=== PATIENT | male | born 1945 | race Caucasian/White ===

== ENCOUNTER 2016-12-26 09:48 | Inpatient (IN) | payer MEDICARE ==
[2016-12-26] VITALS (9 sets, daily range): BP systolic 90–172; BP diastolic 53–85; PULSE 98–139; RESP 12–24; TEMP 97.4–97.8; O2SAT 98–100
[~2016-12-26] VITALS: Ht 182.9 cm; Wt 80.1 kg
[~2016-12-26 09:48] MED LIST: ASPI325T PO; CARV3.125 PO; DIGO.125 PO; FURO20 PO; INSP25TA PO; POTA-267 PO; RAMI10CA35 PO; RANI150 PO; RIVA20 PO
[2016-12-26] MEDS ORDERED: TEMA15CA PO (11:48)
[2016-12-26] MEDS ORDERED: K-TA10TA PO (11:48)
[2016-12-26] MEDS ORDERED: RAMI2.5C PO (11:48)
[2016-12-26] MEDS ORDERED: MECL12.574 PO (11:48)
[2016-12-26] MEDS ORDERED: FURO1TAB60 PO (11:48)
[2016-12-26] MEDS ORDERED: MECLIZINE HCL 25 MG TAB PO ONE (12:15)
--- NOTE | 2016-12-26 12:17 | PD ---
HPI Chief Complaint: Syncope/Near-Syncope Time Seen by Provider: 11:41 Travel History International Travel<30 days: No Contact w/Intl Traveler<30days: No Traveled to known affect area: No History of Present Illness HPI 71-year-old male that presents to the ED for evaluation of multiple syncopal episodes and dizziness for the past 5 months. The patient she's had this ongoing for the past 5 months. Per patient is progressively getting worse and is not improving. He went to [facility] about a month ago and was released and he symptoms continue. Per patient he wasn't happy with the care he got about hospital. Patient came here hoping to get answers. 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 Patient has a significant history of CHF as well. Patient takes multiple medications for his heart and takes blood thinners as well. His falling multiple times because of the dizziness. The patient usually comes with position especially with sitting and standing. Lying down makes it better. Per patient for the past couple of days it's been progressively getting worse. 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 He denies any chest pain or shortness of breath. No urinary or bowel movement issues. No fevers chills or sweats. PFSH Past Medical History Hx Anticoagulant Therapy: Yes Autoimmune Disease: No Blood Disorders: No Heart Rhythm Problems: Yes (AFIB) Cancer: No Cardiac Catheterization: Yes Cardiovascular Problems: Yes (CHF) High Cholesterol: Yes Chemotherapy: No Chest Pain: Yes Congestive Heart Failure: Yes Cerebrovascular Accident: Yes Coronary Artery Disease: Yes Diabetes: No Endocrine: No Gastrointestinal Disorders: No Genitourinary: No Hepatitis: No Hiatal Hernia: No Hypertension: No (HYPOTENSION) Immune Disorder: No Implanted Vascular Access Dvce: Yes Musculoskeletal: No Neurologic: Yes (PT HAS FALLEN 3-4 TIMES IN PAST WEEK THAT DEMONSTRATES POSSIBLE STROKE ACTI) Psychiatric: No Reproductive: No Respiratory: Yes (ASTHMA) Integumentary: No Myocardial Infarction: Yes (2005 AICD PLACED) Radiation Therapy: No Thyroid Disease: No Past Surgical History Abdominal Surgery: Yes (APPY) AICD: Yes (2005) Appendectomy: Yes Joint Replacement: No Oral Surgery: Yes (T&A) Pacemaker: Yes Other Surgery: No Social History Alcohol Use: Yes (1-2 BEERS A DAY) Tobacco Use: No Substance Use: No Allergies-Medications (Allergen,Severity, Reaction): Coded Allergies: No Known Allergies (Verified , 12/26/16) Reported Meds & Prescriptions Reported Meds & Active Scripts Active Reported Temazepam 15 Mg Cap 15 Mg PO HS PRN Ramipril 2.5 Mg Cap 2.5 Mg PO DAILY K-Tab (Potassium Chloride) 10 Meq Tab 10 Meq PO DAILY Meclizine (Meclizine HCl) 12.5 Mg Tab 12.5 Mg PO TID PRN Lasix (Furosemide) 40 Mg Tab 40 Mg PO BID Inspra (Eplerenone) 25 Mg Tab 25 Mg PO DAILY Coreg 3.125 mg (Carvedilol) 3.125 Mg Tab 3.125 Mg PO BID Aspirin 325 mg (Aspirin) 325 Mg Tab 325 Mg PO DAILY Xarelto 20 Mg Tab (Rivaroxaban) 20 Mg Tab 20 Mg PO DAILY Lanoxin (Digoxin) 0.125 Mg Tab 0.125 Mg PO DAILY Review of Systems Except as stated in HPI: all other systems reviewed are Neg Physical Exam Narrative GENERAL: SKIN: Warm and dry. HEAD: Atraumatic. Normocephalic. EYES: Pupils equal and round 4 mm reactive to light and accommodation with the exception of the left one which patient has cataract surgery history. No scleral icterus. No injection or drainage. ENT: No nasal bleeding or discharge. Mucous membranes pink and moist. Tongue is midline. No uvula radiation. NECK: Trachea midline. No JVD. CARDIOVASCULAR: Tachycardic rate and rhythm. No murmurs, S3, S4. RESPIRATORY: No accessory muscle use. Clear to auscultation. Breath sounds equal bilaterally. GASTROINTESTINAL: Abdomen soft, non-tender, nondistended. Hepatic and splenic margins not palpable. MUSCULOSKELETAL: Extremities without clubbing, cyanosis, or edema. No obvious deformities. Full range of motion of the upper and lower extremities bilaterally with weakness noted on the left upper extremity as well as the left lower extremity compared to the right but this is chronic. Pupils pulses bilaterally. No lumbar, thoracic, cervical spine tenderness to palpation. NEUROLOGICAL: Awake and alert. No obvious cranial nerve deficits. Motor grossly within normal limits. Five out of 5 muscle strength in the arms and legs. Normal speech. PSYCHIATRIC: Appropriate mood and affect; insight and judgment normal. Data Data Last Documented VS Vital Signs Date Time Temp Pulse Resp B/P (MAP) Pulse Ox O2 Delivery O2 Flow Rate FiO2 12/26/16 13:44 116 16 159/70 (99) 100 Nasal Cannula 2.00 12/26/16 09:52 97.8 Orders Orders Electrocardiogram (12/26/16 11:39) Complete Blood Count With Diff (12/26/16 11:39) Comprehensive Metabolic Panel (12/26/16 11:39) Ckmb (Isoenzyme) Profile (12/26/16 11:39) Troponin I (12/26/16 11:39) B-Type Natriuretic Peptide (12/26/16 11:39) Prothrombin Time / Inr (Pt) (12/26/16 11:39) Act Partial Throm Time (Ptt) (12/26/16 11:39) Urinalysis - C+S If Indicated (12/26/16 11:39) Magnesium (Mg) (12/26/16 11:39) Thyroid Stimulating Hormone (12/26/16 11:39) Chest, Single Ap (12/26/16 11:39) Iv Access Insert/Monitor (12/26/16 11:39) Ecg Monitoring (12/26/16 11:39) Oximetry (12/26/16 11:39) Orthostatic Vital Signs (12/26/16 11:39) Digoxin (12/26/16 11:45) Ct Brain W/O Iv Contrast(Rout) (12/26/16 ) Meclizine (Antivert) (12/26/16 12:15) Vital Signs (Adult) Q15MX4,Q4H (12/26/16 13:03) Accounts Specialist / Telemetry TIFFANIE.Q8H (12/26/16 13:03) Cardiac Rhythm TIFFANIE.Q8H (12/26/16 13:03) Notify Dr: Other (12/26/16 13:03) Diltiazem Inj (Cardizem Inj) (12/26/16 13:15) Admit Order (Ed Use Only) (12/26/16 13:38) Carvedilol (Coreg) (12/26/16 13:45) Digoxin (Lanoxin) (12/27/16 09:00) Furosemide (Lasix) (12/26/16 21:00) Potassium Chloride (Kcl) (12/27/16 09:00) Ramipril (Altace) (12/27/16 09:00) Rivaroxaban (Xarelto) (12/27/16 09:00) Labs Laboratory Tests Test 12/26/16 11:56 White Blood Count 12.0 TH/MM3 Red Blood Count 4.83 MIL/MM3 Hemoglobin 14.9 GM/DL Hematocrit 46.0 % Mean Corpuscular Volume 95.1 FL Mean Corpuscular Hemoglobin 30.8 PG Mean Corpuscular Hemoglobin Concent 32.4 % Red Cell Distribution Width 16.0 % Platelet Count 231 TH/MM3 Mean Platelet Volume 8.9 FL Neutrophils (%) (Auto) 76.2 % Lymphocytes (%) (Auto) 10.3 % Monocytes (%) (Auto) 12.1 % Eosinophils (%) (Auto) 0.9 % Basophils (%) (Auto) 0.5 % Neutrophils # (Auto) 9.1 TH/MM3 Lymphocytes # (Auto) 1.2 TH/MM3 Monocytes # (Auto) 1.4 TH/MM3 Eosinophils # (Auto) 0.1 TH/MM3 Basophils # (Auto) 0.1 TH/MM3 CBC Comment DIFF FINAL Differential Comment Prothrombin Time 15.4 SEC Prothromb Time International Ratio 1.4 RATIO Activated Partial Thromboplast Time 29.9 SEC Blood Urea Nitrogen 18 MG/DL Creatinine 1.26 MG/DL Random Glucose 103 MG/DL Total Protein 5.6 GM/DL Albumin 2.6 GM/DL Calcium Level 8.1 MG/DL Magnesium Level 2.0 MG/DL Alkaline Phosphatase 53 U/L Aspartate Amino Transf (AST/SGOT) 18 U/L Alanine Aminotransferase (ALT/SGPT) 18 U/L Total Bilirubin 1.0 MG/DL Sodium Level 138 MEQ/L Potassium Level 3.3 MEQ/L Chloride Level 100 MEQ/L Carbon Dioxide Level 30.3 MEQ/L Anion Gap 8 MEQ/L Estimat Glomerular Filtration Rate 56 ML/MIN Total Creatine Kinase 86 U/L Troponin I 0.03 NG/ML B-Type Natriuretic Peptide 615 PG/ML Thyroid Stimulating Hormone 3rd Gen 1.380 uIU/ML Digoxin Level 1.0 NG/ML MDM Medical Decision Making Medical Screen Exam Complete: Yes Emergency Medical Condition: Yes Medical Record Reviewed: Yes Interpretation(s) EKG show tachycardia with pace rhythm CBC & BMP Diagram 12/26/16 11:56 Total Protein 5.6 L, Albumin 2.6 L, Calcium Level 8.1 L, Magnesium Level 2.0, Alkaline Phosphatase 53, Aspartate Amino Transf (AST/SGOT) 18, Alanine Aminotransferase (ALT/SGPT) 18, Total Bilirubin 1.0 Last Impressions Chest X-Ray 12/26/16 1139 Signed Impressions: Service Date/Time: Monday, December 26, 2016 11:41 - CONCLUSION: 1. There is only trace residual right pleural fluid present. Overall significantly decreased from the prior study. 2. Stable enlargement of the cardiac silhouette. Jewel Hannon MD Head CT 12/26/16 0000 Signed Impressions: Service Date/Time: Monday, December 26, 2016 12:18 - CONCLUSION: 1. Previous stroke in the right posterior cerebral artery territory with a focal area of encephalomalacia in the right parafalcine high parietal convexity. 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 3. Nothing acute. Ric Rainey MD troponin and CKMB negative BNP in the 600s digoxin WNL coags WNL Differential Diagnosis Dizziness versus orthostatic hypotension versus CHF versus cardiomyopathy versus syncope versus presyncope versus arrhythmia Narrative Course 71-year-old male that presents to the ED for evaluation of dizziness. Patient was properly examined and was found to have signs and symptoms of syncope and dizziness. Unclear etiology at this time. Patient for she does have significant heart history as well as CVA history. He does take blood thinners and digoxin as well as has a pacemaker and has a history a dermopathy with severe CHF. At this time patient does not appear to be in CHF but he is very symptomatic with just sitting and standing. His heart rate elevated. Initial orthostatics were negative the patient was very symptomatic with just standing. At this time labs and imaging were ordered. Patient agrees to proceed. Labs and imaging showed elevated BNP as well as tachycardia. We had the pacemaker checked here and it did show what appears to be multiple episodes of VT and A. fib with RVR. Case was discussed in my attending Dr Mayen who recommends speaking with cardiology. We spoke with Dr. Chou who is on-call for Dr. Arana and agrees with admission to medicine and started on Cardizem drip. Patient was started Cardizem drip. Patient was told this and agrees with admission. Procedures EKG Prior to Arrival: No Diagnosis Primary Impression: Dizziness Additional Impressions: Tachyarrhythmia VT (ventricular tachycardia) Cardiomyopathy Qualified Codes: I42.9 - Cardiomyopathy, unspecified Admitting Information Admitting Physician Requests: Reid Trujillo Dec 26, 2016 12:17
--- NOTE | 2016-12-26 12:25 | RADRPT ---
EXAM DATE/TIME: 12/26/2016 11:41 [facility] COMPARISON: CHEST SINGLE AP, December 01, 2015, 6:10. INDICATIONS : SYNCOPE MEDICAL HISTORY : Congestive heart failure. A-fib, asthma SURGICAL HISTORY : Pacemaker. ENCOUNTER: Initial ACUITY: 3 months PAIN SCORE: 0/10 LOCATION: chest FINDINGS: AP view of the chest demonstrate stable enlargement of the cardiac silhouette with biventricular card iac pacing device/AICD present. Lungs are mildly underinflated. There is minimal blunting of the righ t costophrenic angle. No pneumothorax or airspace consolidation is identified. Bones and soft tissues demonstrate no acute finding. CONCLUSION: 1. There is only trace residual right pleural fluid present. Overall significantly decreased from the prior study. 2. Stable enlargement of the cardiac silhouette. Jewel Hannon MD on December 26, 2016 at 12:21 Board Certified Radiologist. This report was verified electronically.
[2016-12-26 12:54] LABS: APTT (PATIENT) 29.9 SEC (24.3-30.1); INTERNATIONAL NORMALIZED RATIO 1.4 RATIO; PROTHROMBIN TIME - PATIENT 15.4 SEC (9.8-11.6)
[2016-12-26 12:55] LABS: AUTOMATED NEUTROPHIL # 9.1 TH/MM3 (1.8-7.7); BASOPHIL # 0.1 TH/MM3 (0-0.2); BASOPHIL % 0.5 % (0.0-2.0); EOSINOPHIL # 0.1 TH/MM3 (0-0.4); EOSINOPHIL % 0.9 % (0.0-4.0); HEMO FLAGS DIFF FINAL; LYMPH % 10.3 % (9.0-44.0); LYMPHOCYTE # 1.2 TH/MM3 (1.0-4.8); MEAN CELL VOLUME 95.1 FL (80.0-100.0); MEAN CORPUSCULAR HEMOGLOBIN 30.8 PG (27.0-34.0); MEAN CORPUSCULAR HGB CONC 32.4 % (32.0-36.0); MONO % 12.1 % (0.0-8.0); NEUT % 76.2 % (16.0-70.0); PLATELET COUNT 231 TH/MM3 (150-450); RED BLOOD COUNT 4.83 MIL/MM3 (4.50-5.90)
[2016-12-26 13:01] LABS: ANION GAP 8 MEQ/L (5-15); AST (GOT) 18 U/L (15-37); BICARBONATE 30.3 MEQ/L (21.0-32.0); BLOOD UREA NITROGEN 18 MG/DL (7-18); CHLORIDE 100 MEQ/L (98-107); GLOMERULAR FILTRATION RATE 56 ML/MIN (>89); POTASSIUM 3.3 MEQ/L (3.5-5.1); SODIUM (NA) 138 MEQ/L (136-145)
[2016-12-26 13:02] LABS: ALT (GPT) 18 U/L (12-78)
--- NOTE | 2016-12-26 13:06 | RADRPT ---
EXAM DATE/TIME: 12/26/2016 12:18 [facility] COMPARISON: No previous studies available for comparison. INDICATIONS : Dizziness for five months. RADIATION DOSE: 56.35 CTDIvol (mGy) MEDICAL HISTORY : Cardiovascular disease. Stroke Hypotention. SURGICAL HISTORY : Appendectomy. ENCOUNTER: Initial ACUITY: 1 day PAIN SCALE: 0/10 LOCATION: cranial TECHNIQUE: Multiple contiguous axial images were obtained of the head. Using automated exposure control and adj ustment of the mA and/or kV according to patient size, radiation dose was kept as low as reasonably a chievable to obtain optimal diagnostic quality images. DICOM format image data is available electro nically for review and comparison. FINDINGS: CEREBRUM: The ventricles are normal for age. No evidence of midline shift, mass lesion, hemorrhage or acute in farction. Old infarct in the right posterior cerebral artery distribution with focal area of encepha lomalacia in the high right, parafalcine parietal convexity. Punctate old lacunar type infarct in the right thalamus No extra-axial fluid collections are seen. POSTERIOR FOSSA: The cerebellum and brainstem are intact. The 4th ventricle is midline. The cerebellopontine angle i s unremarkable. EXTRACRANIAL: The visualized portion of the orbits is intact. Pneumatization of the anterior and posterior clinoid of the sella turcica. Phthisis bulbi of the left globe SKULL: The calvaria is intact. No evidence of skull fracture. CONCLUSION: 1. Previous stroke in the right posterior cerebral artery territory with a focal area of encephalomal acia in the right parafalcine high parietal convexity. 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 3. Nothing acute. Ric Rainey MD on December 26, 2016 at 12:53 Board Certified Radiologist. This report was verified electronically.
[2016-12-26 13:11] LABS: ALKALINE PHOSPHATASE 53 U/L (45-117)
[2016-12-26 13:26] LABS: CREATINE KINASE 86 U/L (39-308)
[2016-12-26] MEDS: CARVEDILOL 3.125 MG TAB PO SCH ×2 (13:45→21:00)
[2016-12-26] MEDS: DILTIAZEM INJ 125 MG in SODIUM CHLORIDE 0.9% INJ 100 ML IV PRN (14:22)
--- NOTE | 2016-12-26 14:40 | MB ---
cc: JUAN MASON MD DATE OF CONSULTATION: 12/26/2016. REASON FOR CONSULTATION: Dizziness. HISTORY OF PRESENT ILLNESS: The patient is a pleasant 71-year-old gentleman who follows with my partner, Dr. Arana, who has a history of a nonischemic cardiomyopathy as well atrial fibrillation. He says over the last several weeks he has had multiple near syncopal episodes, though it is unclear whether he has truly lost to syncope. He presented to hospital and by defibrillator check was found to have periods of atrial fibrillation with rapid ventricular response. He is currently feeling somewhat better but is heart rates still are in the 120s to 130s. He denies any chest pain or shortness of breath. PAST MEDICAL HISTORY: 1. Nonischemic cardiomyopathy. 2. Congestive heart failure. 3. Atrial fibrillation. 4. ICD. HOME MEDICATIONS: 1. Xarelto 20 milligrams at bedtime. 2. Digoxin 0.125 milligrams daily. 3. Coreg 3.125 milligrams twice a day. 4. Ramipril 2.5 milligrams daily. 5. . 6. Aspirin 325 mg daily. 7. Potassium. 8. Lasix 40 milligrams twice a day. 9. Meclizine. ALLERGIES: NO KNOWN DRUG ALLERGIES. PHYSICAL EXAMINATION: VITAL SIGNS: Afebrile, pulse 120, respiratory rate 20, blood pressure 119/53 satting 99% on room air. GENERAL: A pleasant gentleman in no distress. NECK: No jugular venous distention. LUNGS: Clear to auscultation bilaterally. CARDIOVASCULAR: Irregularly irregular rhythm with a mildly rapid rate. No murmurs appreciated. ABDOMEN: Benign. EXTREMITIES: No edema. LABORATORY DATA: White count 12.0, hematocrit 46.0, platelets 231,000. Sodium 138, potassium 3.3, chloride 100, bicarbonate 30.3, BUN 18, creatinine 1.26. BNP is 615. CARDIOLOGY STUDIES: EKG shows a paced rhythm with a rate of 115 beats per minute. Telemetry and his pacemaker interrogation have shown periods of atrial fibrillation with rapid ventricular response as well as several paced terminated episodes of a possible ventricular tachycardia. IMPRESSION: 1. Dizziness. The patient has dizziness atrial fibrillation with rapid ventricular response. He is anticoagulated with Xarelto. He has been started on a Cardizem drip and his oral regimen will need to be adjusted to get him better rate-controlled. Further recommendations will be based on his clinical course and Dr. Arana will be available tomorrow to assume care. Thank you again for the opportunity to participate in this patient's care. MD SHAHANA Kimble/DALIA /1:42 PM /2:31 PM
--- NOTE | 2016-12-26 14:48 | HHI.HP ---
HPI Service [facility] Primary Care Physician Nikhil Perkins, [facility] [place] Docs Admission Diagnosis Near syncope and dizziness, tachyarrhythmia Chief Complaint: Dizziness, near-snycope Travel History International Travel<30 Days: No Contact w/Intl Traveler <30 Da: No Traveled to Known Affected Are: No History of Present Illness Mr. Yousif is a pleasant 71 y/o WM with nonischemic cardiomyopathy/CHF with EF 10 -15% with BiVAICD, atrial fibrillation, HTN, and vertigo. Pt presented to the ED with complaints of dizziness and near syncopal episodes which have been occurring for at least the last 3 months. Patient feels that this has been progressively getting worsening. Pt reports that the dizziness occurs mostly when going from sitting to standing and sitting back down or lying down typically resolves or improves the dizziness. It varies in how long the dizziness lasts. He does describe the dizziness like the room is spinning. He has also had episode of near syncope where he will feel that his vision gets "cloudy" and then his legs give out and he will collapse to the floor. He denies having lost consciousness. The last episode of near syncope was around 2 weeks ago. He reports that when this episode occurred his checked his BP and his systolic BP was in the 90's. He reports that his BP fluctuates quite a bit. For the last few days he has felt that the dizziness episodes have been more frequent and lasting longer and this prompted him to come to the ED for further evaluation. In the ED his AICd was interrogated and revealed periods of atrial fibrillation with rapid ventricular response as well as several paced terminated episodes of a possible ventricular tachycardia. Cardiology was contacted from the ED, Dr. Chou, who is covering for Dr. Arana, and the pt was recommended for admission and to be placed on Cardizem gtt. Pt was just started on the Cardizem gtt and his HR is in the 120's. Pt denies any chest pain , SOB, palpitations, LE edema. He states that his weight has been fairly stable. Denies any abd pain, N/V, diarrhea, or constipation. Review of Systems Constitutional: COMPLAINS OF: Dizziness, DENIES: Diaphoretic episodes, Fever, Chills, Night Sweats Eyes: DENIES: Vision loss Ears, nose, mouth, throat: COMPLAINS OF: Vertigo, DENIES: Hoarseness, Running Nose, Epistaxis Respiratory: DENIES: Cough, Wheezing, Shortness of breath Cardiovascular: DENIES: Chest pain, Palpitations, Lower Extremity Edema Gastrointestinal: DENIES: Abdominal pain, Diarrhea, Nausea, Vomiting Genitourinary: DENIES: Urgency, Hematuria Musculoskeletal: DENIES: Neck pain Integumentary: DENIES: Rash Neurologic: DENIES: Headache Psychiatric: DENIES: Confusion Past Family Social History Past Medical History Atrial fibrillation s/p ablation of AVN Nonischemic CM, EF 10-15% with BiVAICD Systolic CHF Hx of VT HTN Vertigo Hx of CVA with left sided weakness/gait disturbance, pt uses a walker Hyperlipidemia Insomnia 2D echo (04/2016): - Severe mitral regurg - LV enlargement with global hypokinesis and markedly reduced EF 10-15% Past Surgical History EPS with AVN ablation and biventricular pacer defibrillator reprogramming on with Dr. Arana. AICD placed in 2005 Appendectomy Tonsillectomy and adenoidectomy Reported Medications -Temazepam 15 Mg PO HS PRN -Ramipril 2.5 Mg PO DAILY -K-Tab 10 Meq PO DAILY -Inspra 25 Mg PO DAILY -Coreg 3.125 mg PO BID -Aspirin 325 mg PO DAILY -Xarelto 20 Mg PO DAILY -Lanoxin 0.125 Mg PO DAILY --Ranitidine 150Mg PO TID --Meclizine 25 Mg PO TID PRN --Lasix 40 Mg PO DAILY Allergies: Coded Allergies: No Known Allergies (Verified , 12/26/16) Family History Noncontributory Social History Denies any tobacco use, now or in the past Hx of alcohol abuse, pt used to drink regularly, several beers per day, none for the last 2 years Denies any illicit drug use Pt is on supplemental O2 chronically He ambulates with use of a walker Pt no longer drives He lives locally with his . Physical Exam Vital Signs Vital Signs Date Time Temp Pulse Resp B/P (MAP) Pulse Ox O2 Delivery O2 Flow Rate FiO2 12/26/16 14:22 110 12/26/16 13:44 116 16 159/70 (99) 100 Nasal Cannula 2.00 12/26/16 12:05 110 20 119/53 (75) 123 20 100/74 (83) 116 22 159/70 (99) 12/26/16 11:49 118 12 121/55 (77) 98 Room Air 12/26/16 11:40 117 96 Room Air 12/26/16 09:52 97.8 105 24 93/65 (74) 100 Room Air Physical Exam GENERAL: This is a well-nourished, well-developed patient, in no apparent distress. SKIN: Lesion on right forearm that is somewhat ulcerated HEENT: Atraumatic. Normocephalic. No temporal or scalp tenderness. No scleral icterus. Airway patent. NECK: Trachea midline, supple, nontender. CARDIO: Irregular, tachy, HR in the 120's on telemetry. RESP: CTA bilaterally. No wheezes, rales, or rhonchi. ABD: +Bs, soft, non-tender, nondistended. EXT: Extremities without clubbing, cyanosis, or edema. NEURO: Awake and alert. Motor and sensory grossly within normal limits. Normal speech. Laboratory Laboratory Tests Test 12/26/16 11:56 White Blood Count 12.0 Red Blood Count 4.83 Hemoglobin 14.9 Hematocrit 46.0 Mean Corpuscular Volume 95.1 Mean Corpuscular Hemoglobin 30.8 Mean Corpuscular Hemoglobin Concent 32.4 Red Cell Distribution Width 16.0 Platelet Count 231 Mean Platelet Volume 8.9 Neutrophils (%) (Auto) 76.2 Lymphocytes (%) (Auto) 10.3 Monocytes (%) (Auto) 12.1 Eosinophils (%) (Auto) 0.9 Basophils (%) (Auto) 0.5 Neutrophils # (Auto) 9.1 Lymphocytes # (Auto) 1.2 Monocytes # (Auto) 1.4 Eosinophils # (Auto) 0.1 Basophils # (Auto) 0.1 CBC Comment DIFF FINAL Differential Comment Prothrombin Time 15.4 Prothromb Time International Ratio 1.4 Activated Partial Thromboplast Time 29.9 Blood Urea Nitrogen 18 Creatinine 1.26 Random Glucose 103 Total Protein 5.6 Albumin 2.6 Calcium Level 8.1 Magnesium Level 2.0 Alkaline Phosphatase 53 Aspartate Amino Transf (AST/SGOT) 18 Alanine Aminotransferase (ALT/SGPT) 18 Total Bilirubin 1.0 Sodium Level 138 Potassium Level 3.3 Chloride Level 100 Carbon Dioxide Level 30.3 Anion Gap 8 Estimat Glomerular Filtration Rate 56 Total Creatine Kinase 86 Troponin I 0.03 B-Type Natriuretic Peptide 615 Thyroid Stimulating Hormone 3rd Gen 1.380 Digoxin Level 1.0 Result Diagram: 12/26/16 1156 12/26/16 1156 Imaging Last Impressions Chest X-Ray 12/26/16 1139 Signed Impressions: Service Date/Time: Monday, December 26, 2016 11:41 - CONCLUSION: 1. There is only trace residual right pleural fluid present. Overall significantly decreased from the prior study. 2. Stable enlargement of the cardiac silhouette. Jewel Hannon MD Head CT 12/26/16 0000 Signed Impressions: Service Date/Time: Monday, December 26, 2016 12:18 - CONCLUSION: 1. Previous stroke in the right posterior cerebral artery territory with a focal area of encephalomalacia in the right parafalcine high parietal convexity. 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 3. Nothing acute. Ric Rainey MD Septic Shock Reassessment Heart: Irregular Lungs: Clear Skin: Warm Caprini VTE Risk Assessment Caprini VTE Risk Assessment: Mod/High Risk (score >= 2) Caprini Risk Assessment Model Point Value = 1 Point Value = 2 Point Value = 3 Point Value = 5 Age 41-60 Minor surgery BMI > 25 kg/m2 Swollen legs Varicose veins or History of unexplained or recurrent spontaneous Oral contraceptives or hormone replacement Sepsis (< 1 month) Serious lung disease, including pneumonia (< 1 month) Abnormal pulmonary function Acute myocardial infarction Congestive heart failure (< 1 month) History of inflammatory bowel disease Medical patient at bed rest Age 61-74 Arthroscopic surgery Major open surgery (> 45 min) Laparoscopic surgery (> 45 min) Malignancy Confined to bed (> 72 hours) Immobilizing plaster cast Central venous access Age >= 75 History of VTE Family history of VTE Factor V Leiden Prothrombin [id number] Lupus anticoagulant Anticardiolipin antibodies Elevated serum homocysteine Heparin-induced thrombocytopenia Other congenital or acquired thrombophilia Stroke (< 1 month) Elective arthroplasty Hip, pelvis, or leg fracture Acute spinal cord injury (< 1 month) Prophylaxis Regimen Total Risk Factor Score Risk Level Prophylaxis Regimen 0-1 Low Early ambulation 2 Moderate Order ONE of the following: *Sequential Compression Device (SCD) *Heparin 5000 units SQ BID 3-4 Higher Order ONE of the following medications: *Heparin 5000 units SQ TID *Enoxaparin/Lovenox 40 mg SQ daily (WT < 150 kg, CrCl > 30 mL/min) *Enoxaparin/Lovenox 30 mg SQ daily (WT < 150 kg, CrCl > 10-29 mL/min) *Enoxaparin/Lovenox 30 mg SQ BID (WT < 150 kg, CrCl > 30 mL/min) AND/OR *Sequential Compression Device (SCD) 5 or more Highest Order ONE of the following medications: *Heparin 5000 units SQ TID (Preferred with Epidurals) *Enoxaparin/Lovenox 40 mg SQ daily (WT < 150 kg, CrCl > 30 mL/min) *Enoxaparin/Lovenox 30 mg SQ daily (WT < 150 kg, CrCl > 10-29 mL/min) *Enoxaparin/Lovenox 30 mg SQ BID (WT < 150 kg, CrCl > 30 mL/min) AND *Sequential Compression Device (SCD) Assessment and Plan Problem List: (1) Atrial fibrillation with RVR ICD Codes: I48.91 - Unspecified atrial fibrillation Status: Chronic Plan: - Pt is a 71 y/o male with nonischemic cardiomyopathy/Systolic CHF with EF 10-15 % with BiVAICD, atrial fibrillation, HTN, and vertigo. - Pt presented to the ED with complaints of dizziness and near syncopal episodes which have been occurring for at least the last 3 months. - For the last few days he has felt that the dizziness episodes have been more frequent and lasting longer and this prompted him to come to the ED for further evaluation. - In the ED his AICD was interrogated and revealed periods of atrial fibrillation with rapid ventricular response as well as several paced terminated episodes of a possible ventricular tachycardia. - Cardiology was contacted from the ED, Dr. Chou, who is covering for Dr. Arana, and the pt was recommended for admission and to be placed on Cardizem gtt. - Pt was just started on the Cardizem gtt and his HR is in the 120's. - Pt has been resumed on Coreg 3.125mg BID and Digoxin 0.125mg daily - Check Dig level - Pt has been resumed on his Xarelto 20mg daily - Monitor on telemetry - Pt has had some newr syncopal episodes as well, etiology unclear, could be related to dysrhythmia, pt has also had issues with hypotension when he has had these near syncopal episodes. - Dr. Arana to evaluate pt in AM - Supportive care - JOSEE unger (2) Dizziness ICD Codes: R42 - Dizziness and giddiness Status: Acute Plan: - Patient has been having issues with dizziness and vertigo for quite some time intermittently. - In the last 3 months he feels that this has been progressively getting worsening. - Pt reports that the dizziness occurs mostly when going from sitting to standing and sitting back down or lying down typically resolves or improves the dizziness. It varies in how long the dizziness lasts. He does describe the dizziness like the room is spinning. - Pt has been taking Meclizine 25mg po TID PRN - We will schedule the Meclizine 25mg po TID - PT evaluation in the morning (3) VT (ventricular tachycardia) ICD Codes: I47.2 - Ventricular tachycardia Status: Acute Plan: - See above. (4) HTN (hypertension) ICD Codes: I10 - Essential (primary) hypertension Status: Chronic Plan: - Home meds resumed - Monitor (5) Cardiomyopathy ICD Codes: I42.9 - Cardiomyopathy Status: Chronic Plan: - Pt with nonischemic CM with EF 10-15% s/p BiVAICD - BB/CHARITO/Lasix continued - Monitor BP closely while on Cardizem gtt. Assessment and Plan Patient examined. Assessment and plan formulated with Myrna Casanova PA-C. I agree with the above. Physician Certification 2 Midnight Certification Type: Admission for Inpatient Services Order for Inpatient Services The services are ordered in accordance with Medicare regulations or non- Medicare payer requirements, as applicable. In the case of services not specified as inpatient-only, they are appropriately provided as inpatient services in accordance with the 2-midnight benchmark. Estimated LOS (days): 3 3 days is the estimated time the patient will need to remain in the hospital, assuming treatment plan goals are met and no additional complications. Post-Hospital Plan: Not yet determined Problem Qualifiers (1) HTN (hypertension): Qualified Codes: I10 - Essential (primary) hypertension (2) Cardiomyopathy: Qualified Codes: I42.9 - Cardiomyopathy, unspecified Myrna Casanova Dec 26, 2016 14:48 Titus Morris MD Dec 26, 2016 20:39
[2016-12-26] MEDS ORDERED: ONDANSETRON HCL 4 MG/2 ML VIAL IV PRN (16:00)
[2016-12-26] MEDS ORDERED: ACETAMINOPHEN 325 MG TAB PO PRN (16:00)
[2016-12-26] MEDS: MECLIZINE HCL 25 MG TAB PO SCH ×2 (16:00→21:08)
[2016-12-26] MEDS: FUROSEMIDE 40 MG TAB PO SCH (21:00)
[2016-12-27] VITALS (11 sets, daily range): BP systolic 92–131; BP diastolic 52–81; PULSE 82–189; RESP 16–20; TEMP 97.4–98.1; O2SAT 96–99
[2016-12-27] MEDS: MECLIZINE HCL 25 MG TAB PO SCH ×4 (06:00→22:21)
[2016-12-27 07:25] LABS: AUTOMATED NEUTROPHIL # 5.3 TH/MM3 (1.8-7.7); BASOPHIL % 0.6 % (0.0-2.0); EOSINOPHIL # 0.2 TH/MM3 (0-0.4); EOSINOPHIL % 2.1 % (0.0-4.0); HEMATOCRIT 40.2 % (39.0-51.0); HEMO FLAGS DIFF FINAL; LYMPH % 10.5 % (9.0-44.0); LYMPHOCYTE # 0.8 TH/MM3 (1.0-4.8); MEAN CELL VOLUME 95.2 FL (80.0-100.0); MEAN CORPUSCULAR HEMOGLOBIN 31.3 PG (27.0-34.0); MEAN CORPUSCULAR HGB CONC 32.8 % (32.0-36.0); MONO % 15.3 % (0.0-8.0); NEUT % 71.5 % (16.0-70.0); PLATELET COUNT 174 TH/MM3 (150-450); RED BLOOD COUNT 4.22 MIL/MM3 (4.50-5.90); RED CELL DISTRIBUTION WIDTH 16.2 % (11.6-17.2); WHITE BLOOD COUNT 7.4 TH/MM3 (4.0-11.0)
[2016-12-27 07:40] LABS: BICARBONATE 29.7 MEQ/L (21.0-32.0); MAGNESIUM 2.1 MG/DL (1.5-2.5); POTASSIUM 3.5 MEQ/L (3.5-5.1)
[2016-12-27] MEDS: RAMIPRIL 2.5 MG CAP PO SCH (08:25)
[2016-12-27] MEDS: FUROSEMIDE 40 MG TAB PO SCH ×2 (08:25→21:00)
[2016-12-27] MEDS: CARVEDILOL 3.125 MG TAB PO SCH ×3 (08:25→21:00)
[2016-12-27] MEDS: RIVAROXABAN 20 MG TAB PO SCH (08:38)
[2016-12-27] MEDS: DIGOXIN 0.125 MG TAB PO SCH (08:38)
[2016-12-27] MEDS: POTASSIUM CHLORIDE 10 MEQ CONTROLLED RELEASE TAB PO SCH (08:38)
[2016-12-27] MEDS: DILTIAZEM INJ 125 MG in SODIUM CHLORIDE 0.9% INJ 100 ML IV PRN (11:08)
[2016-12-27] MEDS ORDERED: IBUPROFEN 600 MG TAB PO ONE (14:00)
--- NOTE | 2016-12-27 14:59 | HHI.PR ---
Subjective Remarks Pt walked with PT this morning and reports that he felt lightheaded. He did have noted VT on the telemetry while he was walking. Pt denies any chest pain or SOB The Cardizem gtt has been held due to low BP, last BP reading with systolic of 90. Objective Vitals Vital Signs Date Time Temp Pulse Resp B/P (MAP) Pulse Ox O2 Delivery O2 Flow Rate FiO2 12/27/16 12:00 116 92/74 (80) 12/27/16 11:08 100 88/58 12/27/16 08:44 Nasal Cannula 2.00 12/27/16 08:00 97.4 114 20 99/72 (81) 99 12/27/16 04:58 2.00 12/27/16 04:29 97.8 102 16 94/65 (75) 12/27/16 04:25 98 12/27/16 04:20 102 94/65 12/27/16 00:20 Nasal Cannula 2.00 12/27/16 00:03 116 12/27/16 00:00 97.6 113 20 98 92/62 (72) 12/26/16 20:00 97.6 115 20 90/66 (74) 99 12/26/16 20:00 Nasal Cannula 2.00 12/26/16 20:00 116 12/26/16 18:04 139 12/26/16 16:16 97.4 104 20 94/71 (79) 99 12/26/16 15:09 107 20 112/73 (86) 98 Nasal Cannula 2.00 Result Diagram: 12/27/16 0612/27/16 0605 Other Results Laboratory Tests Test 12/26/16 11:56 12/27/16 06:05 White Blood Count 12.0 TH/MM3 7.4 TH/MM3 Red Blood Count 4.83 MIL/MM3 4.22 MIL/MM3 Hemoglobin 14.9 GM/DL 13.2 GM/DL Hematocrit 46.0 % 40.2 % Mean Corpuscular Volume 95.1 FL 95.2 FL Mean Corpuscular Hemoglobin 30.8 PG 31.3 PG Mean Corpuscular Hemoglobin Concent 32.4 % 32.8 % Red Cell Distribution Width 16.0 % 16.2 % Platelet Count 231 TH/MM3 174 TH/MM3 Mean Platelet Volume 8.9 FL 9.2 FL Neutrophils (%) (Auto) 76.2 % 71.5 % Lymphocytes (%) (Auto) 10.3 % 10.5 % Monocytes (%) (Auto) 12.1 % 15.3 % Eosinophils (%) (Auto) 0.9 % 2.1 % Basophils (%) (Auto) 0.5 % 0.6 % Neutrophils # (Auto) 9.1 TH/MM3 5.3 TH/MM3 Lymphocytes # (Auto) 1.2 TH/MM3 0.8 TH/MM3 Monocytes # (Auto) 1.4 TH/MM3 1.1 TH/MM3 Eosinophils # (Auto) 0.1 TH/MM3 0.2 TH/MM3 Basophils # (Auto) 0.1 TH/MM3 0.0 TH/MM3 CBC Comment DIFF FINAL DIFF FINAL Differential Comment Prothrombin Time 15.4 SEC Prothromb Time International Ratio 1.4 RATIO Activated Partial Thromboplast Time 29.9 SEC Blood Urea Nitrogen 18 MG/DL 19 MG/DL Creatinine 1.26 MG/DL 1.10 MG/DL Random Glucose 103 MG/DL 88 MG/DL Total Protein 5.6 GM/DL Albumin 2.6 GM/DL Calcium Level 8.1 MG/DL 8.0 MG/DL Magnesium Level 2.0 MG/DL 2.1 MG/DL Alkaline Phosphatase 53 U/L Aspartate Amino Transf (AST/SGOT) 18 U/L Alanine Aminotransferase (ALT/SGPT) 18 U/L Total Bilirubin 1.0 MG/DL Sodium Level 138 MEQ/L 139 MEQ/L Potassium Level 3.3 MEQ/L 3.5 MEQ/L Chloride Level 100 MEQ/L 101 MEQ/L Carbon Dioxide Level 30.3 MEQ/L 29.7 MEQ/L Anion Gap 8 MEQ/L 8 MEQ/L Estimat Glomerular Filtration Rate 56 ML/MIN 66 ML/MIN Total Creatine Kinase 86 U/L Troponin I 0.03 NG/ML B-Type Natriuretic Peptide 615 PG/ML Thyroid Stimulating Hormone 3rd Gen 1.380 uIU/ML Digoxin Level 1.0 NG/ML Imaging Last Impressions Chest X-Ray 12/26/16 1139 Signed Impressions: Service Date/Time: Monday, December 26, 2016 11:41 - CONCLUSION: 1. There is only trace residual right pleural fluid present. Overall significantly decreased from the prior study. 2. Stable enlargement of the cardiac silhouette. Jewel Hannon MD Head CT 12/26/16 0000 Signed Impressions: Service Date/Time: Monday, December 26, 2016 12:18 - CONCLUSION: 1. Previous stroke in the right posterior cerebral artery territory with a focal area of encephalomalacia in the right parafalcine high parietal convexity. 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 3. Nothing acute. Ric Rainey MD Objective Remarks General: NAD, AAOx3 Chest: CTA Cardiac: Irregular, tachy, 4/6 RUDY Abd: +BS, soft ND/NT Ext: No edema A/P Problem List: (1) Atrial fibrillation with RVR ICD Codes: I48.91 - Unspecified atrial fibrillation Status: Chronic Plan: - Pt is a 71 y/o male with nonischemic cardiomyopathy/Systolic CHF with EF 10-15 % with BiVAICD, atrial fibrillation, HTN, and vertigo. - Pt presented to the ED with complaints of dizziness and near syncopal episodes which have been occurring for at least the last 3 months. - For the last few days he has felt that the dizziness episodes have been more frequent and lasting longer and this prompted him to come to the ED for further evaluation. - In the ED his AICD was interrogated and revealed periods of atrial fibrillation with rapid ventricular response as well as several paced terminated episodes of a possible ventricular tachycardia. - Cardiology was contacted from the ED, Dr. Chou, who is covering for Dr. Arana, and the pt was recommended for admission and to be placed on Cardizem gtt. - Pt was started on the Cardizem gtt in the ED - Pt was resumed on Coreg 3.125mg BID and Digoxin 0.125mg daily. - Dig level 1.0 at admission. - Pt has been resumed on his Xarelto 20mg daily - Pt has had some near syncopal episodes as well, etiology unclear, could be related to dysrhythmia, pt has also had issues with hypotension when he has had these near syncopal episodes. - Dr. Arana to evaluate pt today - He has had issues with hypotension today, BB, CHARITO and Lasix on hold - Cardizem gtt is on hold. - Supportive care - JOSEE unger (2) Dizziness ICD Codes: R42 - Dizziness and giddiness Status: Acute Plan: - Patient has been having issues with dizziness and vertigo for quite some time intermittently. - In the last 3 months he feels that this has been progressively getting worsening. - Pt reports that the dizziness occurs mostly when going from sitting to standing and sitting back down or lying down typically resolves or improves the dizziness. It varies in how long the dizziness lasts. He does describe the dizziness like the room is spinning. - Pt has been taking Meclizine 25mg po TID PRN - Cont. Meclizine 25mg po TID (3) VT (ventricular tachycardia) ICD Codes: I47.2 - Ventricular tachycardia Status: Acute Plan: - See above. (4) HTN (hypertension) ICD Codes: I10 - Essential (primary) hypertension Status: Chronic Plan: - Home meds on hold due to low BP - Monitor (5) Cardiomyopathy ICD Codes: I42.9 - Cardiomyopathy Status: Chronic Plan: - Pt with nonischemic CM with EF 10-15% s/p BiVAICD - BB/CHARITO/Lasix on hold due to hypotension Assessment and Plan Patient examined. Assessment and plan formulated with Myrna Casanova PA-C. I agree with the above. Case d/w Dr. Arana (12/27/16) No further digoxin at this time. Dr. Arana will reevaluate pt/case clarissa today. Problem Qualifiers (1) HTN (hypertension): Qualified Codes: I10 - Essential (primary) hypertension (2) Cardiomyopathy: Qualified Codes: I42.9 - Cardiomyopathy, unspecified Myrna Casanova Dec 27, 2016 14:59 Noe López DO Dec 27, 2016 15:57
--- NOTE | 2016-12-27 15:34 | EKG ---
Date Performed: 12/26/2016 Time Performed: 11:51:38 PTAGE: 71 years EKG: ELECTRONIC VENTRICULAR PACEMAKER When compared to previous tracing rate is significantly in creased. ABNORMAL RHYTHM ECG PREVIOUS TRACING : 17.00.30 DOCTOR: Mario Alberto Moulton Interpretating Date/Time 12/27/2016 15:33:21
[2016-12-28] VITALS (7 sets, daily range): BP systolic 90–144; BP diastolic 56–71; PULSE 74–116; RESP 16–21; TEMP 97.1–98; O2SAT 93–100
[2016-12-28] MEDS: MECLIZINE HCL 25 MG TAB PO SCH ×3 (05:41→21:37)
[2016-12-28] MEDS: RIVAROXABAN 20 MG TAB PO SCH (08:48)
[2016-12-28] MEDS: POTASSIUM CHLORIDE 10 MEQ CONTROLLED RELEASE TAB PO SCH (08:48)
[2016-12-28] MEDS: DIGOXIN 0.125 MG TAB PO SCH (08:48)
[2016-12-28] MEDS: CARVEDILOL 3.125 MG TAB PO SCH ×2 (08:50→21:00)
[2016-12-28] MEDS: RAMIPRIL 2.5 MG CAP PO SCH (08:50)
[2016-12-28] MEDS: FUROSEMIDE 40 MG TAB PO SCH ×2 (08:51→21:00)
--- NOTE | 2016-12-28 15:35 | HHI.PR ---
Subjective Remarks Pt still with low BP today and elevated HR He was seen by Dr. Arana this afternoon and is recommended to have EPS with possible ablation tomorrow. Objective Vitals Vital Signs Date Time Temp Pulse Resp B/P (MAP) Pulse Ox O2 Delivery O2 Flow Rate FiO2 12/28/16 11:50 97.6 114 20 92/60 (71) 100 12/28/16 08:00 97.1 116 16 90/60 (70) 99 12/28/16 04:00 97.4 114 18 94/56 (69) 96 12/28/16 00:00 97.7 110 21 98/63 (75) 93 12/27/16 20:00 114 12/27/16 20:00 97.8 82 18 94/52 (66) 96 12/27/16 20:00 Nasal Cannula 2.00 12/27/16 16:38 96/68 (77) 12/27/16 16:00 98.1 106 20 131/81 (98) 99 Result Diagram: 12/27/16 0605 12/27/16 0605 Other Results Laboratory Tests Test 12/27/16 06:05 White Blood Count 7.4 TH/MM3 Red Blood Count 4.22 MIL/MM3 Hemoglobin 13.2 GM/DL Hematocrit 40.2 % Mean Corpuscular Volume 95.2 FL Mean Corpuscular Hemoglobin 31.3 PG Mean Corpuscular Hemoglobin Concent 32.8 % Red Cell Distribution Width 16.2 % Platelet Count 174 TH/MM3 Mean Platelet Volume 9.2 FL Neutrophils (%) (Auto) 71.5 % Lymphocytes (%) (Auto) 10.5 % Monocytes (%) (Auto) 15.3 % Eosinophils (%) (Auto) 2.1 % Basophils (%) (Auto) 0.6 % Neutrophils # (Auto) 5.3 TH/MM3 Lymphocytes # (Auto) 0.8 TH/MM3 Monocytes # (Auto) 1.1 TH/MM3 Eosinophils # (Auto) 0.2 TH/MM3 Basophils # (Auto) 0.0 TH/MM3 CBC Comment DIFF FINAL Differential Comment Blood Urea Nitrogen 19 MG/DL Creatinine 1.10 MG/DL Random Glucose 88 MG/DL Calcium Level 8.0 MG/DL Magnesium Level 2.1 MG/DL Sodium Level 139 MEQ/L Potassium Level 3.5 MEQ/L Chloride Level 101 MEQ/L Carbon Dioxide Level 29.7 MEQ/L Anion Gap 8 MEQ/L Estimat Glomerular Filtration Rate 66 ML/MIN Imaging Last Impressions Chest X-Ray 12/26/16 1139 Signed Impressions: Service Date/Time: Monday, December 26, 2016 11:41 - CONCLUSION: 1. There is only trace residual right pleural fluid present. Overall significantly decreased from the prior study. 2. Stable enlargement of the cardiac silhouette. Jewel Hannon MD Head CT 12/26/16 0000 Signed Impressions: Service Date/Time: Monday, December 26, 2016 12:18 - CONCLUSION: 1. Previous stroke in the right posterior cerebral artery territory with a focal area of encephalomalacia in the right parafalcine high parietal convexity. 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 3. Nothing acute. Ric Rainey MD Objective Remarks General: NAD, AAOx3 Chest: CTA Cardiac: Irregular, tachy, 4/6 RUDY Abd: +BS, soft ND/NT Ext: No edema A/P Problem List: (1) Atrial fibrillation with RVR ICD Codes: I48.91 - Unspecified atrial fibrillation Status: Chronic Plan: - Pt is a 71 y/o male with nonischemic cardiomyopathy/Systolic CHF with EF 10-15 % with BiVAICD, atrial fibrillation, HTN, and vertigo. - Pt presented to the ED with complaints of dizziness and near syncopal episodes which have been occurring for at least the last 3 months. - For the last few days he has felt that the dizziness episodes have been more frequent and lasting longer and this prompted him to come to the ED for further evaluation. - In the ED his AICD was interrogated and revealed periods of atrial fibrillation with rapid ventricular response as well as several paced terminated episodes of a possible ventricular tachycardia. - Cardiology was contacted from the ED, Dr. Chou, who is covering for Dr. Arana, and the pt was recommended for admission and to be placed on Cardizem gtt. - Pt was started on the Cardizem gtt in the ED - Pt was resumed on Coreg 3.125mg BID and Digoxin 0.125mg daily. - Dig level 1.0 at admission. - Cont. Xarelto 20mg daily - Pt has had some near syncopal episodes as well, etiology unclear, could be related to dysrhythmia, pt has also had issues with hypotension when he has had these near syncopal episodes. - Dr. Arana is recommending EPS with possible ablation tomorrow. - He has had issues with hypotension today; BB, CHARITO and Lasix on hold - Cardizem gtt is on hold. - Supportive care - JOSEE unger (2) Dizziness ICD Codes: R42 - Dizziness and giddiness Status: Acute Plan: - Patient has been having issues with dizziness and vertigo for quite some time intermittently. - In the last 3 months he feels that this has been progressively getting worsening. - Pt reports that the dizziness occurs mostly when going from sitting to standing and sitting back down or lying down typically resolves or improves the dizziness. It varies in how long the dizziness lasts. He does describe the dizziness like the room is spinning. - Pt has been taking Meclizine 25mg po TID PRN - Cont. Meclizine 25mg po TID (3) VT (ventricular tachycardia) ICD Codes: I47.2 - Ventricular tachycardia Status: Acute Plan: - See above. (4) HTN (hypertension) ICD Codes: I10 - Essential (primary) hypertension Status: Chronic Plan: - Home meds on hold due to low BP - Monitor (5) Cardiomyopathy ICD Codes: I42.9 - Cardiomyopathy Status: Chronic Plan: - Pt with nonischemic CM with EF 10-15% s/p BiVAICD - BB/CHARITO/Lasix on hold due to hypotension Assessment and Plan Patient examined. Assessment and plan formulated with Myrna Casanova PA-C. I agree with the above. Problem Qualifiers (1) HTN (hypertension): Qualified Codes: I10 - Essential (primary) hypertension (2) Cardiomyopathy: Qualified Codes: I42.9 - Cardiomyopathy, unspecified Myrna Casanova Dec 28, 2016 15:35 Noe López DO Dec 31, 2016 23:45
--- NOTE | 2016-12-28 18:12 | MB ---
cc: PRATIBHA LÓPEZ HANSCY M.D. DATE OF CONSULTATION 12/28/2016 Electrophysiology consultation REASON FOR CONSULTATION Atrial fibrillation unable to control with medication. HISTORY Mr. Yousif is a 71-year-old gentleman with congestive heart failure, cardiomyopathy. He has a previous biventricular pacer defibrillator implanted, nonischemic cardiomyopathy, atrial fibrillation admitted due to atrial fibrillation, shortness of breath. Heart rate cannot be controlled. I was consulted for further evaluation and management. The chart was reviewed. The patient was evaluated. ALLERGIES None. SOCIAL HISTORY Negative for smoking and drinking. FAMILY HISTORY Noncontributory to his current medical condition. MEDICATIONS He is on: 1. Xarelto. 2. Digoxin. 3. Coreg. 4. Ramipril. 5. Aspirin. 6. Potassium. 7. Lasix. 8. Magnesium. REVIEW OF SYSTEMS The patient refers no chest pain. No chest discomfort. Shortness of breath on palpitation but no fever. PHYSICAL EXAMINATION GENERAL: Alert and fully oriented. In bed. VITAL SIGNS: Blood pressure 92/60, pulse 114, respiratory rate 20. LUNGS: Ventilated. CARDIOVASCULAR: S1-S2. Tachycardic, irregular. ABDOMEN: Soft. No mass. No bruit. EXTREMITIES: No edema. Electrocardiogram atrial fibrillation with rapid ventricular response on V pacing. LABORATORY DATA Hemoglobin 13.2, white blood 7.4. Potassium 3.5, creatinine 1.10. Digoxin 1.0. ASSESSMENT AND RECOMMENDATIONS Mr. Yousif has atrial fibrillation. He has severe cardiomyopathy. The gentleman is not a good candidate for atrial fibrillation ablation. The best approach at this point is AV lefty medication and BiV pacing. The gentleman already has a device. The risks, the nature and the benefit of the procedure are clearly stated to him and his family. The risks include pneumothorax, cardiac perforation, stroke and even . They understood and agreed to proceed. The case discussed with Dr. López. The procedure will be performed most likely tomorrow morning. MD JESSE Ryan/CLAUDIA /5:22 PM /5:56 PM
[2016-12-29] VITALS: BP 104/65; PULSE 107; RESP 16; TEMP 98.3; O2SAT 100
[2016-12-29 04:00] VITALS: BP 109/61; PULSE 104; RESP 16; TEMP 97.7; O2SAT 100
[2016-12-29] MEDS: MECLIZINE HCL 25 MG TAB PO SCH ×3 (05:30→21:13)
[2016-12-29 08:00] VITALS: BP 108/73; PULSE 110; PULSE 122; RESP 18; TEMP 97.8; O2SAT 97
--- NOTE | 2016-12-29 08:46 | PD.CARD.PN ---
Subjective Subjective Remarks Feels okay, still in A. fib. Heart rate in the low 100s. Objective Medications Current Medications Medications (Trade) Dose Ordered Sig/Praveen Route Start Time Stop Time Status Last Admin Diltiazem HCl 125 mg/Sodium Chloride 125 ml @ 5 mls/hr TITRATE PRN IV 12/26/16 13:15 12/27/16 11:08 (Coreg) 3.125 mg BID PO 12/26/16 13:45 12/26/16 13:45 (Lanoxin) 0.125 mg DAILY PO 12/27/16 09:00 12/28/16 08:48 (Lasix) 40 mg BID PO 12/26/16 21:00 (KCl) 10 meq DAILY PO 12/27/16 09:00 12/28/16 08:48 (Altace) 2.5 mg DAILY PO 12/27/16 09:00 (Antivert) 25 mg Q8HR PO 12/26/16 16:00 12/29/16 05:30 (Tylenol) 650 mg Q4H PRN PO 12/26/16 16:00 (Zofran Inj) 4 mg Q6H PRN IV 12/26/16 16:00 Vital Signs / I&O Vital Signs Date Time Temp Pulse Resp B/P (MAP) Pulse Ox O2 Delivery O2 Flow Rate FiO2 12/29/16 04:00 97.7 104 16 109/61 (77) 100 12/29/16 00:00 98.3 107 16 104/65 (78) 100 12/28/16 20:00 97.2 99 16 99/56 (70) 98 12/28/16 20:00 Nasal Cannula 2.00 12/28/16 20:00 91 12/28/16 19:00 97.8 113 20 105/65 (78) 12/28/16 16:15 97.1 108 18 98/56 (70) 96 98/60 (73) 12/28/16 11:50 97.6 114 20 92/60 (71) 100 I/O 12/28/16 12/28/16 12/28/16 12/29/16 12/29/16 12/29/16 07:00 15:00 23:00 07:00 15:00 23:00 Intake Total 240 ml 480 ml Output Total 500 ml 500 ml Balance -260 ml 480 ml -500 ml Intake Oral 240 ml 480 ml Output Urine Total 500 ml 500 ml # Voids 3 # Bowel Movements 1 2 Physical Exam GENERAL: Thin, elderly, well-developed patient. SKIN: Warm and dry. HEAD: Normocephalic. EYES: No scleral icterus. No injection or drainage. NECK: Supple, trachea midline. No JVD or lymphadenopathy. CARDIOVASCULAR: Irregular rhythm mildly tachycardic rate without rub murmur or gallop. RESPIRATORY: Breath sounds equal bilaterally. No accessory muscle use. GASTROINTESTINAL: Abdomen soft, non-tender, nondistended. EXTREMITIES: No cyanosis, or edema. NEUROLOGICAL: Awake, alert, and oriented x 3. Non-focal. Imaging Last Impressions Chest X-Ray 12/26/16 1139 Signed Impressions: Service Date/Time: Monday, December 26, 2016 11:41 - CONCLUSION: 1. There is only trace residual right pleural fluid present. Overall significantly decreased from the prior study. 2. Stable enlargement of the cardiac silhouette. Jewel Hannon MD Head CT 12/26/16 0000 Signed Impressions: Service Date/Time: Monday, December 26, 2016 12:18 - CONCLUSION: 1. Previous stroke in the right posterior cerebral artery territory with a focal area of encephalomalacia in the right parafalcine high parietal convexity. 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 3. Nothing acute. Ric Rainey MD Assessment and Plan Problem List: (1) Atrial fibrillation with RVR ICD Codes: I48.91 - Unspecified atrial fibrillation Status: Chronic Plan: Plan to make him nothing by mouth after midnight tonight for AV node ablation tomorrow. Per my discussion with Dr. Arana patient is not a good candidate for atrial fibrillation ablation due to was multiple comorbidities. He does have an implanted biventricular ICD/pacer. Plan for AV node ablation per my discussion with Dr. Arana. Terra Ramírez Dec 29, 2016 08:46
[2016-12-29] MEDS: CARVEDILOL 3.125 MG TAB PO SCH ×2 (08:58→21:00)
[2016-12-29] MEDS: DIGOXIN 0.125 MG TAB PO SCH (08:59)
[2016-12-29] MEDS: POTASSIUM CHLORIDE 10 MEQ CONTROLLED RELEASE TAB PO SCH (08:59)
[2016-12-29] MEDS: FUROSEMIDE 40 MG TAB PO SCH ×2 (09:00→21:00)
[2016-12-29] MEDS: RAMIPRIL 2.5 MG CAP PO SCH (09:00)
[2016-12-29 11:18] VITALS: BP 93/63; PULSE 115; RESP 18; TEMP 98.3; O2SAT 99
--- NOTE | 2016-12-29 12:16 | HHI.PR ---
Subjective Remarks Patient seen by myself and Dr. López with at bedside AV node ablation rescheduled for tomorrow per Dr. Arana Patient offers no specific complaints Patient reports that patient had a, "dizziness episode," earlier today after ambulating to the restroom. dizziness resolved after resting in bed Objective Vitals Vital Signs Date Time Temp Pulse Resp B/P (MAP) Pulse Ox O2 Delivery O2 Flow Rate FiO2 12/29/16 11:18 98.3 115 18 93/63 (73) 99 12/29/16 08:00 97.8 122 18 108/73 (85) 97 12/29/16 04:00 97.7 104 16 109/61 (77) 100 12/29/16 00:00 98.3 107 16 104/65 (78) 100 12/28/16 20:00 97.2 99 16 99/56 (70) 98 12/28/16 20:00 Nasal Cannula 2.00 12/28/16 20:00 91 12/28/16 19:00 97.8 113 20 105/65 (78) 12/28/16 16:15 97.1 108 18 98/56 (70) 96 98/60 (73) Result Diagram: 12/27/16 0605 12/27/16 0605 Other Results Laboratory Tests Test 12/27/16 06:05 White Blood Count 7.4 TH/MM3 Red Blood Count 4.22 MIL/MM3 Hemoglobin 13.2 GM/DL Hematocrit 40.2 % Mean Corpuscular Volume 95.2 FL Mean Corpuscular Hemoglobin 31.3 PG Mean Corpuscular Hemoglobin Concent 32.8 % Red Cell Distribution Width 16.2 % Platelet Count 174 TH/MM3 Mean Platelet Volume 9.2 FL Neutrophils (%) (Auto) 71.5 % Lymphocytes (%) (Auto) 10.5 % Monocytes (%) (Auto) 15.3 % Eosinophils (%) (Auto) 2.1 % Basophils (%) (Auto) 0.6 % Neutrophils # (Auto) 5.3 TH/MM3 Lymphocytes # (Auto) 0.8 TH/MM3 Monocytes # (Auto) 1.1 TH/MM3 Eosinophils # (Auto) 0.2 TH/MM3 Basophils # (Auto) 0.0 TH/MM3 CBC Comment DIFF FINAL Differential Comment Blood Urea Nitrogen 19 MG/DL Creatinine 1.10 MG/DL Random Glucose 88 MG/DL Calcium Level 8.0 MG/DL Magnesium Level 2.1 MG/DL Sodium Level 139 MEQ/L Potassium Level 3.5 MEQ/L Chloride Level 101 MEQ/L Carbon Dioxide Level 29.7 MEQ/L Anion Gap 8 MEQ/L Estimat Glomerular Filtration Rate 66 ML/MIN Imaging Last Impressions Chest X-Ray 12/26/16 1139 Signed Impressions: Service Date/Time: Monday, December 26, 2016 11:41 - CONCLUSION: 1. There is only trace residual right pleural fluid present. Overall significantly decreased from the prior study. 2. Stable enlargement of the cardiac silhouette. Jewel Hannon MD Head CT 12/26/16 0000 Signed Impressions: Service Date/Time: Monday, December 26, 2016 12:18 - CONCLUSION: 1. Previous stroke in the right posterior cerebral artery territory with a focal area of encephalomalacia in the right parafalcine high parietal convexity. 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 3. Nothing acute. Ric Rainey MD Objective Remarks General: NAD, AAOx3 Chest: CTA Cardiac: Irregular, tachy, 4/6 RUDY Abd: +BS, soft ND/NT Ext: No edema A/P Problem List: (1) Atrial fibrillation with RVR ICD Codes: I48.91 - Unspecified atrial fibrillation Status: Chronic Plan: - Pt is a 71 y/o male with nonischemic cardiomyopathy/Systolic CHF with EF 10-15 % with BiVAICD, atrial fibrillation, HTN, and vertigo. - Pt presented to the ED with complaints of dizziness and near syncopal episodes which have been occurring for at least the last 3 months. - For the last few days he has felt that the dizziness episodes have been more frequent and lasting longer and this prompted him to come to the ED for further evaluation. - In the ED his AICD was interrogated and revealed periods of atrial fibrillation with rapid ventricular response as well as several paced terminated episodes of a possible ventricular tachycardia. - Cardiology was contacted from the ED, Dr. Chou, who is covering for Dr. Arana, and the pt was recommended for admission and to be placed on Cardizem gtt. - Pt was started on the Cardizem gtt in the ED - Pt was resumed on Coreg 3.125mg BID and Digoxin 0.125mg daily. - Dig level 1.0 at admission. - Cont. Xarelto 20mg daily - Pt has had some near syncopal episodes as well, etiology unclear, could be related to dysrhythmia, pt has also had issues with hypotension when he has had these near syncopal episodes. - Dr. Arana is recommending EPS with possible AV node ablation scheduled for tomorrow. - Patient continues to have hypotension; BB, CHARITO and Lasix with hold parameters - Cardizem gtt is on hold. - Supportive care - JOSEE unger (2) Dizziness ICD Codes: R42 - Dizziness and giddiness Status: Acute Plan: - Patient has been having issues with dizziness and vertigo for quite some time intermittently. - In the last 3 months he feels that this has been progressively getting worsening. - Pt reports that the dizziness occurs mostly when going from sitting to standing and sitting back down or lying down typically resolves or improves the dizziness. It varies in how long the dizziness lasts. He does describe the dizziness like the room is spinning. - Pt has been taking Meclizine 25mg po TID PRN - Cont. Meclizine 25mg po TID (3) VT (ventricular tachycardia) ICD Codes: I47.2 - Ventricular tachycardia Status: Acute Plan: - See above. (4) HTN (hypertension) ICD Codes: I10 - Essential (primary) hypertension Status: Chronic Plan: - Home meds on hold due to low BP - Monitor (5) Cardiomyopathy ICD Codes: I42.9 - Cardiomyopathy Status: Chronic Plan: - Pt with nonischemic CM with EF 10-15% s/p BiVAICD - BB/CHARITO/Lasix with hold parameters Assessment and Plan Patient examined. Assessment and plan formulated with Glenis Bronson PA-C. I agree with the above. Problem Qualifiers (1) HTN (hypertension): Qualified Codes: I10 - Essential (primary) hypertension (2) Cardiomyopathy: Qualified Codes: I42.9 - Cardiomyopathy, unspecified Glenis Bronson Dec 29, 2016 12:16 Noe López DO Dec 31, 2016 23:45
[2016-12-29 16:15] VITALS: BP 90/64; PULSE 92; RESP 18; TEMP 97.2; O2SAT 100
[2016-12-29 19:15] VITALS: PULSE 89
[2016-12-29 22:17] LABS: AUTOMATED NEUTROPHIL # 7.4 TH/MM3 (1.8-7.7); BASOPHIL # 0.2 TH/MM3 (0-0.2); BASOPHIL % 2.1 % (0.0-2.0); EOSINOPHIL # 0.1 TH/MM3 (0-0.4); EOSINOPHIL % 0.7 % (0.0-4.0); HEMATOCRIT 41.8 % (39.0-51.0); HEMO FLAGS DIFF FINAL; LYMPH % 8.5 % (9.0-44.0); LYMPHOCYTE # 0.8 TH/MM3 (1.0-4.8); MEAN CELL VOLUME 94.9 FL (80.0-100.0); MEAN CORPUSCULAR HEMOGLOBIN 31.5 PG (27.0-34.0); MEAN CORPUSCULAR HGB CONC 33.2 % (32.0-36.0); MONO % 12.9 % (0.0-8.0); NEUT % 75.8 % (16.0-70.0); PLATELET COUNT 179 TH/MM3 (150-450); RED BLOOD COUNT 4.41 MIL/MM3 (4.50-5.90); RED CELL DISTRIBUTION WIDTH 15.9 % (11.6-17.2); WHITE BLOOD COUNT 9.8 TH/MM3 (4.0-11.0)
[2016-12-29 22:24] LABS: POTASSIUM 4.3 MEQ/L (3.5-5.1)
[2016-12-29 22:36] LABS: APTT (PATIENT) 27.5 SEC (24.3-30.1); INTERNATIONAL NORMALIZED RATIO 1.2 RATIO; PROTHROMBIN TIME - PATIENT 13.9 SEC (9.8-11.6)
[2016-12-30] VITALS (20 sets, daily range): BP systolic 81–111; BP diastolic 50–71; PULSE 77–88; RESP 16–20; TEMP 97.4–98.1; O2SAT 95–99
[2016-12-30] MEDS: MECLIZINE HCL 25 MG TAB PO SCH ×3 (06:08→21:37)
[2016-12-30] MEDS ORDERED: ISOPROTERENOL HCL 1 MG/5 ML AMP ONE (07:30)
[2016-12-30] MEDS ORDERED: KETAMINE HCL 500 MG/10 ML VIAL ONE (07:34)
[2016-12-30] MEDS: FUROSEMIDE 40 MG TAB PO SCH ×2 (09:00→21:00)
[2016-12-30] MEDS ORDERED: oxyCODONE/ACETAMINOPHEN 5 MG/325 MG TAB PO PRN ×2 (09:15)
[2016-12-30] MEDS ORDERED: BACITRACIN OINT 0.9 GM PKT TOP ONE (09:15)
[2016-12-30] MEDS ORDERED: SODIUM CHLOR 0.9% 250 ML INJ 250 ML IV PRN (09:15)
[2016-12-30] MEDS ORDERED: LORazepam 2 MG/ML VIAL IV PUSH PRN (09:15)
[2016-12-30] MEDS ORDERED: METOCLOPRAMIDE HCL 10 MG/2 ML VIAL IV PUSH PRN (09:15)
[2016-12-30] MEDS ORDERED: ATROPINE SULFATE 1 MG/ML VIAL IV PUSH PRN (09:15)
[2016-12-30] MEDS ORDERED: LIDOCAINE HCL 1% 50 ML VIAL INFIL PRN (09:15)
[2016-12-30] MEDS: RAMIPRIL 2.5 MG CAP PO SCH (09:52)
[2016-12-30] MEDS: POTASSIUM CHLORIDE 10 MEQ CONTROLLED RELEASE TAB PO SCH (09:52)
[2016-12-30] MEDS: CARVEDILOL 3.125 MG TAB PO SCH ×2 (09:52→21:37)
[2016-12-30] MEDS ORDERED: ONDANSETRON HCL 4 MG/2 ML VIAL IV PUSH PRN (10:00)
--- NOTE | 2016-12-30 11:41 | HHI.PR ---
Subjective Remarks Patient resting in bed S/P ablation with Dr. Arana this AM offers no specific complaints at this time reports feeling well denies dizziness or feeling light headed Objective Vitals Vital Signs Date Time Temp Pulse Resp B/P (MAP) Pulse Ox O2 Delivery O2 Flow Rate FiO2 12/30/16 04:00 97.6 80 20 102/70 (81) 98 12/30/16 00:00 97.4 84 20 81/58 (66) 99 12/29/16 19:15 89 12/29/16 19:15 Nasal Cannula 2.00 12/29/16 16:15 97.2 92 18 90/64 (73) 100 Result Diagram: 12/29/16215012/29/162133 Other Results Laboratory Tests Test 12/29/16 21:34 12/29/16 21:51 Prothrombin Time 13.9 SEC Prothromb Time International Ratio 1.2 RATIO Activated Partial Thromboplast Time 27.5 SEC Blood Urea Nitrogen 21 MG/DL Creatinine 1.19 MG/DL Random Glucose 101 MG/DL Calcium Level 8.1 MG/DL Sodium Level 136 MEQ/L Potassium Level 4.3 MEQ/L Chloride Level 100 MEQ/L Carbon Dioxide Level 28.0 MEQ/L Anion Gap 8 MEQ/L Estimat Glomerular Filtration Rate 60 ML/MIN White Blood Count 9.8 TH/MM3 Red Blood Count 4.41 MIL/MM3 Hemoglobin 13.9 GM/DL Hematocrit 41.8 % Mean Corpuscular Volume 94.9 FL Mean Corpuscular Hemoglobin 31.5 PG Mean Corpuscular Hemoglobin Concent 33.2 % Red Cell Distribution Width 15.9 % Platelet Count 179 TH/MM3 Mean Platelet Volume 8.8 FL Neutrophils (%) (Auto) 75.8 % Lymphocytes (%) (Auto) 8.5 % Monocytes (%) (Auto) 12.9 % Eosinophils (%) (Auto) 0.7 % Basophils (%) (Auto) 2.1 % Neutrophils # (Auto) 7.4 TH/MM3 Lymphocytes # (Auto) 0.8 TH/MM3 Monocytes # (Auto) 1.3 TH/MM3 Eosinophils # (Auto) 0.1 TH/MM3 Basophils # (Auto) 0.2 TH/MM3 CBC Comment DIFF FINAL Differential Comment Imaging Last Impressions Chest X-Ray 12/26/16 1139 Signed Impressions: Service Date/Time: Monday, December 26, 2016 11:41 - CONCLUSION: 1. There is only trace residual right pleural fluid present. Overall significantly decreased from the prior study. 2. Stable enlargement of the cardiac silhouette. Jewel Hannon MD Head CT 12/26/16 0000 Signed Impressions: Service Date/Time: Monday, December 26, 2016 12:18 - CONCLUSION: 1. Previous stroke in the right posterior cerebral artery territory with a focal area of encephalomalacia in the right parafalcine high parietal convexity. 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 3. Nothing acute. Ric Rainey MD Objective Remarks General: NAD, AAOx3 Chest: CTA Cardiac:regular rate and rhythm, 07/08 RUDY Abd: +BS, soft ND/NT Ext: No edema A/P Problem List: (1) Atrial fibrillation with RVR ICD Codes: I48.91 - Unspecified atrial fibrillation Status: Chronic Plan: - Pt is a 71 y/o male with nonischemic cardiomyopathy/Systolic CHF with EF 10-15 % with BiVAICD, atrial fibrillation, HTN, and vertigo. - Pt presented to the ED with complaints of dizziness and near syncopal episodes which have been occurring for at least the last 3 months. - For the last few days he has felt that the dizziness episodes have been more frequent and lasting longer and this prompted him to come to the ED for further evaluation. - In the ED his AICD was interrogated and revealed periods of atrial fibrillation with rapid ventricular response as well as several paced terminated episodes of a possible ventricular tachycardia. - Cardiology was contacted from the ED, Dr. Chou, who is covering for Dr. Arana, and the pt was recommended for admission and to be placed on Cardizem gtt. - Pt was started on the Cardizem gtt in the ED - Pt was resumed on Coreg 3.125mg BID and Digoxin 0.125mg daily. - Dig level 1.0 at admission. - Cont. Xarelto 20mg daily - Pt has had some near syncopal episodes as well, etiology unclear, could be related to dysrhythmia, pt has also had issues with hypotension when he has had these near syncopal episodes. - Dr. Arana is recommending EPS with possible AV node ablation - S/P ablation 12/30/[address] Arana procedure notes pending - Patient continues to have hypotension; BB, CHARITO and Lasix with hold parameters - Cardizem gtt DC'd - Supportive care - JOSEE ibarrae (2) Dizziness ICD Codes: R42 - Dizziness and giddiness Status: Acute Plan: - Patient has been having issues with dizziness and vertigo for quite some time intermittently. - In the last 3 months he feels that this has been progressively getting worsening. - Pt reports that the dizziness occurs mostly when going from sitting to standing and sitting back down or lying down typically resolves or improves the dizziness. It varies in how long the dizziness lasts. He does describe the dizziness like the room is spinning. - Pt has been taking Meclizine 25mg po TID PRN - Cont. Meclizine 25mg po TID - s/p ablation 12/30 no further dizziness (3) VT (ventricular tachycardia) ICD Codes: I47.2 - Ventricular tachycardia Status: Acute Plan: - See above. (4) HTN (hypertension) ICD Codes: I10 - Essential (primary) hypertension Status: Chronic Plan: - Home meds on hold due to low BP - Monitor (5) Cardiomyopathy ICD Codes: I42.9 - Cardiomyopathy Status: Chronic Plan: - Pt with nonischemic CM with EF 10-15% s/p BiVAICD - BB/CHARITO/Lasix with hold parameters Assessment and Plan Patient examined. Assessment and plan formulated with Glenis Bronson PA-C. I agree with the above. Problem Qualifiers (1) HTN (hypertension): Qualified Codes: I10 - Essential (primary) hypertension (2) Cardiomyopathy: Qualified Codes: I42.9 - Cardiomyopathy, unspecified Glenis Bronson Dec 30, 2016 11:41 Noe López DO Dec 31, 2016 23:46
[2016-12-30] MEDS ORDERED: PROPOFOL 200 MG/20 ML AMP IV ONE (12:00)
[2016-12-30] MEDS ORDERED: ePHEDrine/NS 25 MG/5 ML SYR IV ONE (12:00)
[2016-12-30] MEDS ORDERED: PHENYLEPH/NS 1000 MCG/10 ML SYR IV ONE (12:00)
[2016-12-30] MEDS: NS + KCL 20 MEQ INJ 1,000 ML IV SCH (15:51)
[2016-12-31] VITALS (16 sets, daily range): BP systolic 106–137; BP diastolic 52–70; PULSE 70–90; RESP 16–18; TEMP 97.6–98.4; O2SAT 97–99
[2016-12-31] MEDS: NS + KCL 20 MEQ INJ 1,000 ML IV SCH (02:30)
[2016-12-31] MEDS: MECLIZINE HCL 25 MG TAB PO SCH (06:11)
--- NOTE | 2016-12-31 07:55 | HHI.DS ---
Discharge Summary Admission Date Dec 29, 2016 at 10:12 Discharge Date: Dec 31, 2016 Admitting Diagnosis Near syncope and dizziness, tachyarrhythmia (1) Atrial fibrillation with RVR ICD Codes: I48.91 - Unspecified atrial fibrillation Status: Chronic (2) Dizziness ICD Codes: R42 - Dizziness and giddiness Status: Acute (3) VT (ventricular tachycardia) ICD Codes: I47.2 - Ventricular tachycardia Status: Acute (4) HTN (hypertension) ICD Codes: I10 - Essential (primary) hypertension Status: Chronic (5) Cardiomyopathy ICD Codes: I42.9 - Cardiomyopathy Status: Chronic Consultants Dr. Arana Procedures AV node ablation 12/30/[address] Arana Brief History Mr. Yousif is a pleasant 71 y/o WM with nonischemic cardiomyopathy/CHF with EF 10 -15% with BiVAICD, atrial fibrillation, HTN, and vertigo. Pt presented to the ED with complaints of dizziness and near syncopal episodes which have been occurring for at least the last 3 months. Patient feels that this has been progressively getting worsening. Pt reports that the dizziness occurs mostly when going from sitting to standing and sitting back down or lying down typically resolves or improves the dizziness. It varies in how long the dizziness lasts. He does describe the dizziness like the room is spinning. He has also had episode of near syncope where he will feel that his vision gets "cloudy" and then his legs give out and he will collapse to the floor. He denies having lost consciousness. The last episode of near syncope was around 2 weeks ago. He reports that when this episode occurred his checked his BP and his systolic BP was in the 90's. He reports that his BP fluctuates quite a bit. For the last few days he has felt that the dizziness episodes have been more frequent and lasting longer and this prompted him to come to the ED for further evaluation. In the ED his AICd was interrogated and revealed periods of atrial fibrillation with rapid ventricular response as well as several paced terminated episodes of a possible ventricular tachycardia. Cardiology was contacted from the ED, Dr. Chou, who is covering for Dr. Arana, and the pt was recommended for admission and to be placed on Cardizem gtt. Pt was just started on the Cardizem gtt and his HR is in the 120's. Pt denies any chest pain , SOB, palpitations, LE edema. He states that his weight has been fairly stable. Denies any abd pain, N/V, diarrhea, or constipation. CBC/BMP: 12/29/161 12/29/164 Significant Findings Laboratory Tests Test 12/29/16 21:34 12/29/16 21:51 Prothrombin Time 13.9 SEC (9.8-11.6) Blood Urea Nitrogen 21 MG/DL (7-18) Calcium Level 8.1 MG/DL (8.5-10.1) Estimat Glomerular Filtration Rate 60 ML/MIN (>89) Red Blood Count 4.41 MIL/MM3 (4.50-5.90) Neutrophils (%) (Auto) 75.8 % (16.0-70.0) Lymphocytes (%) (Auto) 8.5 % (9.0-44.0) Monocytes (%) (Auto) 12.9 % (0.0-8.0) Basophils (%) (Auto) 2.1 % (0.0-2.0) Lymphocytes # (Auto) 0.8 TH/MM3 (1.0-4.8) Monocytes # (Auto) 1.3 TH/MM3 (0-0.9) Imaging Last Impressions Chest X-Ray 12/26/16 1139 Signed Impressions: Service Date/Time: Monday, December 26, 2016 11:41 - CONCLUSION: 1. There is only trace residual right pleural fluid present. Overall significantly decreased from the prior study. 2. Stable enlargement of the cardiac silhouette. Jewel Hannon MD Head CT 12/26/16 0000 Signed Impressions: Service Date/Time: Monday, December 26, 2016 12:18 - CONCLUSION: 1. Previous stroke in the right posterior cerebral artery territory with a focal area of encephalomalacia in the right parafalcine high parietal convexity. 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 3. Nothing acute. Ric Rainey MD PE at Discharge General: NAD, AAOx3 Chest: CTA Cardiac:regular rate and rhythm, 4/6 RUDY Abd: +BS, soft ND/NT Ext: No edema Hospital Course Atrial fibrillation with RVR - Pt is a 71 y/o male with nonischemic cardiomyopathy/Systolic CHF with EF 10-15 % with BiVAICD, atrial fibrillation, HTN, and vertigo. - Pt presented to the ED with complaints of dizziness and near syncopal episodes which have been occurring for at least the last 3 months. - For the last few days he has felt that the dizziness episodes have been more frequent and lasting longer and this prompted him to come to the ED for further evaluation. - In the ED his AICD was interrogated and revealed periods of atrial fibrillation with rapid ventricular response as well as several paced terminated episodes of a possible ventricular tachycardia. - Cardiology was contacted from the ED, Dr. Chou, who is covering for Dr. Arana, and the pt was recommended for admission and to be placed on Cardizem gtt. - Pt was started on the Cardizem gtt in the ED - Pt was resumed on Coreg 3.125mg BID and Digoxin 0.125mg daily. - Dig level 1.0 at admission. - Cont. Xarelto 20mg daily - Pt has had some near syncopal episodes as well, etiology unclear, could be related to dysrhythmia, pt has also had issues with hypotension when he has had these near syncopal episodes. - Dr. Arana is recommending EPS with possible AV node ablation - Patient underwent AV ablation 12/30/[address] Arana - Patient continued to have hypotension- which improved after IV hydration then BB, CHARITO and Lasix were restarted with hold parameters Dizziness - Patient has been having issues with dizziness and vertigo for quite some time intermittently. - In the last 3 months he feels that this has been progressively getting worsening. - Pt reports that the dizziness occurs mostly when going from sitting to standing and sitting back down or lying down typically resolves or improves the dizziness. It varies in how long the dizziness lasts. He does describe the dizziness like the room is spinning. - Pt has been taking Meclizine 25mg po TID PRN - Cont. Meclizine 25mg po TID - s/p AV ablation 12/30 no further dizziness VT (ventricular tachycardia) - See above. HTN (hypertension) - Home meds were on hold due to low BP - BP improved after IV fluid then BB, CHARITO and Lasix were restarted with hold parameters - Monitor Cardiomyopathy - Pt with nonischemic CM with EF 10-15% s/p BiVAICD - BB/CHARITO/Lasix with hold parameters Pt Condition on Discharge: Stable Discharge Disposition: Discharge Home Discharge Instructions DIET: Follow Instructions for: Heart Healthy Diet Activities to Avoid: Lifting/Bending Follow up Referrals: Cardiology - [address] Arana PCP Follow-up - 1 Week with Nikhil RUDD Home Docs Continued Medications: Aspirin (Aspirin 325 mg) 325 Mg Tab 325 MG PO DAILY, TAB Carvedilol 3.125 mg (Coreg 3.125 mg) 3.125 Mg Tab 3.125 MG PO BID, TAB Digoxin (Lanoxin) 0.125 Mg Tab 0.125 MG PO DAILY Eplerenone (Inspra) 25 Mg Tab 25 MG PO DAILY, TAB Furosemide (Lasix) 40 Mg Tab 40 MG PO BID, #60 TAB 0 Refills Meclizine (Meclizine) 12.5 Mg Tab 25 MG PO TID PRN for VERTIGO, TAB 0 Refills Potassium Chloride ER (K-Tab) 10 Meq Tab 10 MEQ PO DAILY for Electrolyte Replacement, #30 TAB 0 Refills Ramipril (Ramipril) 2.5 Mg Cap 2.5 MG PO DAILY, #30 CAP 0 Refills Rivaroxaban (Xarelto 20 Mg Tab) 20 Mg Tab 20 MG PO DAILY, TAB Temazepam (Temazepam) 15 Mg Cap 15 MG PO HS PRN for INSOMNIA, #30 CAP 0 Refills Additional Information Patient examined. Assessment and plan formulated with Glenis Bronson PA-C. I agree with the above. Glenis Bronson Dec 31, 2016 07:55 Noe López DO Dec 31, 2016 23:46
--- NOTE | 2016-12-31 07:56 | HHI.DCPOC ---
Discharge Care Plan Diagnosis: (1) Dizziness (2) Atrial fibrillation with RVR (3) VT (ventricular tachycardia) (4) Cardiomyopathy Goals to Promote Your Health * To prevent worsening of your condition and complications * To maintain your health at the optimal level Directions to Meet Your Goals Take your medications as prescribed Follow your dietary instruction Follow activity as directed Keep your appointments as scheduled Take your immunizations and boosters as scheduled If your symptoms worsen call your PCP, if no PCP go to Urgent Care Center or Emergency Room Smoking is Dangerous to Your Health. Avoid second hand smoke Call the 24-hour hour crisis hotline for domestic abuse at Glenis Bronson Dec 31, 2016 07:56 Noe López DO Dec 31, 2016 23:47
[2016-12-31] MEDS: FUROSEMIDE 40 MG TAB PO SCH (08:01)
[2016-12-31] MEDS: CARVEDILOL 3.125 MG TAB PO SCH (08:01)
[2016-12-31] MEDS: POTASSIUM CHLORIDE 10 MEQ CONTROLLED RELEASE TAB PO SCH (08:01)
[2016-12-31] MEDS: RAMIPRIL 2.5 MG CAP PO SCH (08:01)
--- NOTE | 2016-12-31 10:11 | EKG ---
Date Performed: 12/31/2016 Time Performed: 05:49:38 PTAGE: 71 years EKG: Ventricular pacing Pacemaker rhythm - no further analysis Abnormal ECG PREVIOUS TRACING : 12/30/2016 14.00 Compared to prior tracing no significant change DOCTOR: Quinten De Luna Interpretating Date/Time 12/31/2016 10:09:15
--- NOTE | 2016-12-31 10:11 | EKG ---
Date Performed: 12/30/2016 Time Performed: 14:00:22 PTAGE: 71 years EKG: Demand pacing --- Suggests dextrocardia --- Abnormal ECG PREVIOUS TRACING : 12/26/2016 11.51 DOCTOR: Quinten De Luna Interpretating Date/Time 12/31/2016 10:09:42
--- NOTE | 2016-12-31 10:21 | RADRPT ---
EXAM DATE/TIME: 12/31/2016 08:48 [facility] COMPARISON: CHEST SINGLE AP, December 26, 2016, 11:41. INDICATIONS : Cough. MEDICAL HISTORY : Congestive heart failure. A-fib, Asthma SURGICAL HISTORY : Pacemaker. ENCOUNTER: Subsequent ACUITY: 2 months PAIN SCORE: 0/10 LOCATION: Bilateral chest FINDINGS: Pacer in good position. Heart remains enlarged. There is minimal increasing interstitial edema. Th ere is no pneumothorax. CONCLUSION: Minimal increasing interstitial edema. Kevin Hobbs MD FACR on December 31, 2016 at 9:53 Board Certified Radiologist. This report was verified electronically.
--- NOTE | 2017-01-05 16:15 | CATHPROC ---
[facility] HIS Report Study Information Study Number Scheduled Start Study Start [id number] 12/30/2016 Dec 30 2016 6:44AM Referring Institution Admit Source Facility Department 1 [facility] Physician and Clinical Staff Initial Nadiya Batista Fruit Sorter Baudilio Ying,RT(R) Other Anesthesia, CHILDREN'S SERVICE SUPERVISOR Recorder Phyllis Londono,RN Recorder Elizabeth Ponce,MIKE Scrub Regi Munroe,LIZZY Procedures Performed Procedure Location (Site) Ablation Procedure Cardioversion RF Ablation AV NODE Equipment Time Photographer Portrait Description Size Mfg Part Number Used/Scraped BIOSENSE BETH CATHETER, CELSIUS DS, 8MM, F [id number] 07:13 FR 7 Used INC. TYPE QUAD *[id number] 06:49 [employer] IND[employer]ES PACK, CCL CUSTOM * Used *[id number] 06:49 [employer] PACER LO, LIMB * 2530 *[id number] Used [id number] 06:49 [facility] BLANKET,WARM AIR CCL * Used *[id number] 07:10 [employer] MED[employer] CATHETER, JSN, QUAD FR 5 Used *[id number] 07:10 [employer] MED[employer] CATHETER, JSN, QUAD FR 5 Used *[id number] 07:10 [employer] MED[employer] CATHETER, JSN, QUAD FR 5 Used *[id number] 07:10 [employer] MEDICAL CATHETER, JSN, QUAD FR 5 Used *[id number] 06:49 [employer] MEDICAL ELECTRODE KIT, TASHA X SURFACE * [id number] Used [id number] 07:10 [employer] MED[employer] SHEATH, EPS, FR5 FAST CATH FR 5 Used *[id number] 07:10 [employer] SHEATH, EPS, FR5 FAST CATH FR 5 Used *[id number] 07:11 [employer] SHEATH, EPS, FR5 FAST CATH FR 5 Used *[id number] 07:11 [facility] SHEATH, EPS, FR6 FAST CATH FR 6 Used *[id number] 07:11 [facility] [employer] MED[employer] SHEATH, EPS, FR8 FAST CATH FR 8 Used *[id number] [facility] PAD, ELECTROSURGICAL 06:49 * [id number] *[id number] Used SURGICAL GROUNDING (BLUE) History: Allergies Allergy Reaction No Known Allergies History: Risk Factors Hypertension Dyslipidemia Previous Heart Failure Yes Yes Yes Labs Hgb (g/dl) Hct (%) RBC (MIL/MM3) WBC (l/cumm) Platelets (thousands) 11.60-17.00 35.00-51.00 4.00-5.90 4.00-11.00 150.00-450.00 13.0 41 4.4 9.8 179 Glucose (mg/dl) BUN (mg/dl) Creatinine (mg/dl) BUN:Creatinine (1:x) 74.00-106.00 7.00-18.00 0.50-1.30 10.00-20.00 101 21 1.1 19.1 Na (meq/l) K (meq/l) 136.00-145.00 3.50-5.10 136 4.3 INR (PTT:PT) 0.90-1.10 1.2 Medication Medication Total Dose (Bolus/Oral) Medication Total Dosage/Unit 1% XYLOCAINE 20 mL Medications (Bolus/Oral) Medication Time Given Dosage/Unit Administered By Reason 1% XYLOCAINE 12/30/2016 7:39:11 AM 20 mL Phyllis Londono 20 mL 1% XYLOCAINE given in lab by Phyllis Londono RN via Subcutaneous. Ordered by Nadiya Arana. Medication (Drip) Medication Time Given Dosage/Unit Concentration/Unit Diluent (ml) Solution IV Solutions 12/30/2016 7:07:51 AM 0 mL (IV) 1000 NaCl .9 IV Solutions given in lab by Phyllis Londono RN in Left Arm via Peripheral IV. Pump/Drip Flow = 20 ml /hr using NaCl .9. Ordered by Nadiya Arana. IV Solutions 12/30/2016 7:08:27 AM 0 mL (IV) 500 NaCl .9 IV Solutions given in lab by Phyllis Londono RN in Right Arm via Peripheral IV. Pump/Drip Flow = 20 m l/hr using NaCl .9. Ordered by Nadiya Arana. Initial Case Assessment Cardiovascular HR Rhythm NIBP Chest Pain 62 evp and chief operating officer 77/59 0 Edema Present Skin color Skin None Normal Warm Dry Circulatory - Right Pulses Dorsalis Pedis 1 Scale (0,1,2,3,4,d) Circulatory - Left Pulses Dorsalis Pedis 1 Scale (0,1,2,3,4,d) Circulatory - Lower Extremities Color Lower Right Color Lower Left Normal Normal Neurological State Oriented to time-place- Alert Moves all extremities person Respiration - General Respiration Rate SpO2 (%) (B/min) 20 98 Chronological Log Time Study Chronological Log 7:05:45 Patient arrived via Bed. 7:05:51 Patient Name, D.O.B, / Armband Verified By R.N. 7:05:56 Consent signed by the physician and the patient and verified by the [facility] staff. 7:05:58 Pre-op and post- op instructions given; patient acknowledges understanding of instructions. 7:06:28 Verbal Stimulation=2 Physical Stimulation=2 Airway=2 Respiration=2 TOTAL=8. (0=absent, 1=li mited, 2=present) 7:06:39 Presedation assessment performed by [facility] RN. 7:06:41 Patient has been NPO for More than 6Hrs. 7:06:43 Skin Breakdown/bilateral bruising/sores arms 7:07:09 Patient Warmer Placed on the Table. 7:07:10 Disposable Defibrillator Pads Placed On Patient. 7:07:11 Sarah Beth Prominences Protected 7:07:15 History and physical on the chart or being dictated. 7:07:23 A # 20 IV was noted in the Upper Arm (left). Grade = 0 7:07:38 A # 20 IV was noted in the Upper Arm (right). Grade = 0 IV Solutions given in lab by Phyllis Londono, MIKE in Left Arm via Peripheral IV. Pump/Drip Flow = 20 ml/hr using NaCl 7:07:51 .9. Ordered by Nadiya Arana. IV Solutions given in lab by Phyllis Londono RN in Right Arm via Peripheral IV. Pump/Drip Flow = 20 ml/hr using NaCl 7:08:27 .9. Ordered by Nadiya Arana. 7:09:03 Anesthesia at bedside. Assumes care of patient. Assessment: Initial Case, HR=62 BPM, Rhythm=evp and chief operating officer, NIBP=77/59 mmhg, Chest Pain=0, Edema=None, Color =Normal, Skin = Warm, Dry Right Pulses: Subhash Ped=1 Left Pulses: Subhash Ped=1 7:27:22 Lower Right Extremities: Color=Normal Lower Left Extremities: Color=Normal Neurological: State=Alert, Ox3, JEAN Respiration: Resp=20 B/min, SpO2=98 % 7:29:00 paged 7:29:13 Biv ICD at vvi [address] [facility] Rep per dr Arana 7:30:42 Table restraints applied according to hospital policy 7:30:48 Bilateral groins prepped with 2% chlorhexidine, and with a 3 min. waiting time. 7:34:10 Reference ECG taken 7:36:34 MD arrived. Time Out. Correct patient, procedure, procedure equipment, site and side verified with physician present. Time 7:38:06 concurred by MD, individual staff and CHILDREN'S SERVICE SUPERVISOR. Time Out #2 - Consents verified, patient in correct position, all results are labled and display ed, safety precautions 7:38:37 taken, antibiotics administered. Time out concurred by MD, individual staff and CHILDREN'S SERVICE SUPERVISOR in procedur e 7:38:58 Case Start 7:39:11 20 mL 1% XYLOCAINE given in lab by Phyllis Londono RN via Subcutaneous. Ordered by [employer] Arana. 7:39:58 Vascular access was obtained in the Fem Vein (right). 7:40:06 Vascular access was obtained in the Fem Vein (right). 7:40:28 Vascular access was obtained in the Fem Vein (right). 7:40:39 Vascular access was obtained in the Fem Vein (right). 7:41:05 A SHEATH, EPS, FR5 FAST CATH FR 5 was advanced into the Fem Vein (right) using the Modified Seldinger technique. 7:41:14 A SHEATH, EPS, FR5 FAST CATH FR 5 was advanced into the Fem Vein (right) using the Modified Seldinger technique. 7:41:20 A SHEATH, EPS, FR5 FAST CATH FR 5 was advanced into the Fem Vein (right) using the Modified Seldinger technique. 7:41:29 A SHEATH, EPS, FR6 FAST CATH FR 6 was advanced into the Fem Vein (right) using the Modified Seldinger technique. 7:42:32 A SHEATH, EPS, FR8 FAST CATH FR 8 was advanced into the Fem Vein (right) using the Modified Seldinger technique. A CATHETER, JSN, QUAD FR 5 was advanced vis Fem Vein (right) and placed in the CS. Placement was visually 7:43:57 confirmed under fluoroscopy. A CATHETER, JSN, QUAD FR 5 was advanced vis Fem Vein (right) and placed in the HIS. Placement wa s visually 7:44:07 confirmed under fluoroscopy. A CATHETER, JSN, QUAD FR 5 was advanced vis Fem Vein (right) and placed in the RVOT. Placement w as visually 7:44:58 confirmed under fluoroscopy. A CATHETER, JSN, QUAD FR 5 was advanced vis Fem Vein (right) and placed in the HRA. Placement wa s visually 7:45:10 confirmed under fluoroscopy. A CATHETER, CELSIUS DS, 8MM, F TYPE QUAD FR 7 was advanced vis Fem Vein (right) and placed in th e AV NODE. 7:47:15 Placement was visually confirmed under fluoroscopy. 7:48:00 RF Ablation of the AV NODE with a CATHETER, CELSIUS DS, 8MM, F TYPE QUAD FR 7. 7:59:42 ABLATION IN PORGRESS 8:10:47 ECG rhythm of AF noted. Patient cardioverted at 200 joules. Success 8:18:23 AV NODE ABLATED 8:20:17 BIV SET TO ORIGINAL SETTING 8:20:50 Case End 8:22:05 Ablation procedure performed: ~ABLATION TYPE~. AV NODE ABLATION 8:22:35 EP Procedure was performed. 8:26:34 Catheter(s) removed without difficulty 8:26:35 Sheath removed; pressure applied to access site. BY BAUDILIO Kovacs 8:26:50 Sterile dressing applied to site 8:26:50 No case complications noted. 8:26:51 Cine recording checked. 8:26:53 Bedside Report will be given. 8:26:54 DOCU called. Spoke to DAYA 8:27:03 Defibrillator and ground pads removed. Skin intact. 8:35:14 Patient moved to [facility] End Study - Contrast Media Used In Study Contrast Total Opened (mL) Total Used (mL) Total Wasted (mL) Unspecified 0 0 0 End Study - Maximum Contrast Load Max Contrast Load (mL) 349.6 End Study - Radiation Exposure Fluoro Time (minutes) 8.6 End Study - Patient Disposition Complications Transferred To Interventional Outcome No Telemetry Bed successful
--- NOTE | 2017-01-07 11:26 | MA ---
cc: KEM GUTHRIE M.D., HANSCY M.D. Corrected Copy: 01/13/17 DATE: 12/30/2016 PROCEDURE Electrophysiology study, CS cannulation, 3-D mapping, AV node modification, biventricular pacer defibrillator reprogramming. That was a very complex case. INDICATION Mr. Yousif is a 71-year-old gentleman with congestive heart failure, cardiomyopathy, atrial fibrillation very difficult to control with medication. The decision for AV node ablation was taken. The risks, the nature and the benefit of the procedure were clearly stated to him. The risks include pneumothorax, cardiac perforation, stroke and even . He understood and agreed to proceed. DETAILS OF PROCEDURE After written informed consent was obtained, the patient was brought to the EP lab where he was prepped and draped in the usual sterile fashion. Conscious sedation was initiated and maintained throughout the procedure by the anesthesiologist. Once sedation was verified, the right inguinal area was anesthetized with 2% Xylocaine. Using modified Seldinger technique, the right femoral vein was cannulated on four occasions and four guidewires were advanced. Over the wires three 5, a 6 and an 8 [place] were advanced. Then under fluoroscopic guidance through the 5 and 6 [place], three 5 [place] Yasmeen curved quadripolar electrophysiology catheters were advanced and positioned on the His, coronary sinus and right ventricular apex. The patient was in atrial fibrillation. Through the 10 [place], a Cord[place]-Jama F-curve 8 mm mapping and radiofrequency ablation catheter was advanced. Using the [employer] mapping system a three-dimensional configuration of the right atrium was obtained. Then the catheter was placed at the tricuspid valve annulus. When His observed radiofrequency energy was delivered. I did have to map the His for around an hour before I could find the right position for ablation. The patient went into junctional and further burn was delivered in the area. Previous to that the biventricular pacer defibrillator was reprogrammed to VVI 40. At that point the procedure was complete. The biventricular pacer defibrillator was reprogrammed both to VVI 80, LV first by 40 milliseconds and defibrillatory portion on. The patient is going to be transferred to the recovery room. That was a very complex case. No incident report. The patient tolerated the procedure. Blood loss minimal. FINDINGS 1. Electrocardiogram: At baseline the patient was in atrial fibrillation. Post procedure the patient was in atrial fibrillation but V pacing. 2. Basic interval: Basic cycle length was around 530 milliseconds. Post ablation it was around 800 milliseconds because the patient was V pacing. 3. Tachyarrhythmia: The AV node was mapped and ablated. Ablation was successful. CONCLUSIONS Successful electrophysiology study, mapping and radiofrequency ablation of AV node, 3-D mapping and biventricular pacer defibrillator reprogramming. COMMENT/RECOMMENDATION The patient is going to be transferred to the recovery room. He will be observed and can be discharged home whenever it is okay with the managing team. Nadiya Arana MD HS/BT /10:48 AM /12:30 PM
== END 2016-12-31 15:10 | disposition home or self-care (01) | DRG 274 ==
LOC: NEPE 09:48 → NEDA 13:40 → INTOOBSV 13:40 → N04A 16:16 → OBSVTOIN 12-29 10:12 → HCIS 12-30 08:09 → HCIN 12-30 08:50
PROVIDERS: ADMIT Hospitalist; ATTEND Hospitalist
PROC: 4B02XTZ Measurement of Cardiac Defibrillator, External Approach (ICD-10-PCS; 2016-12-26)
PROC: 4A0234Z Measurement of Cardiac Electrical Activity, Percutaneous Approach (ICD-10-PCS; 2016-12-30)
PROC: 02K83ZZ Map Conduction Mechanism, Percutaneous Approach (ICD-10-PCS; 2016-12-30)
PROC: 02583ZZ Destruction of Conduction Mechanism, Percutaneous Approach (ICD-10-PCS; principal; 2016-12-30 07:30)
DX: I48.91 Unspecified atrial fibrillation (principal); I47.2 Ventricular tachycardia; I50.22 Chronic systolic (congestive) heart failure; I42.9 Cardiomyopathy, unspecified; Z95.810 Presence of automatic (implantable) cardiac defibrillator; Z79.02 Long term (current) use of antithrombotics/antiplatelets; I10 Essential (primary) hypertension; R42 Dizziness and giddiness
CPT/HCPCS: 70450; 71010; 80048; 80053; 80162; 82550; 83735; 83880; 84443; 84484; 85025; 85610; 85730; 92960; 93005; 93613; 93620; 93650; C1730; C1732; C2630; G8987-GP; G8988-GP; J2370; J2405; J3480

== ENCOUNTER 2017-01-06 20:09 | Emergency (ER) | payer MEDICARE ==
[~2017-01-06] VITALS: Ht 182.9 cm; Wt 78.0 kg
[~2017-01-06 20:09] MED LIST changes: +FURO1TAB60 PO; -FURO20 PO; +K-TA10TA PO; +MECL12.574 PO; -POTA-267 PO; -RAMI10CA35 PO; +RAMI2.5C PO; -RANI150 PO; +TEMA15CA PO
[2017-01-06 20:11] VITALS: BP 101/74; PULSE 78; RESP 16; TEMP 98.7; O2SAT 98
[2017-01-06] MEDS ORDERED: INSP25TA PO (21:44)
[2017-01-06] MEDS ORDERED: DIGO0.12 PO (21:44)
[2017-01-06] MEDS ORDERED: ASPI81CH CHEW (21:44)
[2017-01-06] MEDS ORDERED: CARV3.125 PO (21:44)
[2017-01-06] MEDS ORDERED: XARE20TA PO (21:44)
[2017-01-06] MEDS ORDERED: SODIUM CHLORIDE 0.9% FLUSH 10 ML FLUSH IVF PRN (22:00)
[2017-01-06 22:09] VITALS: O2SAT 94
--- NOTE | 2017-01-06 22:09 | PD ---
HPI Chief Complaint: Musculoskeletal Complaint Time Seen by Provider: 21:44 Travel History International Travel<30 days: No Contact w/Intl Traveler<30days: No Traveled to known affect area: No History of Present Illness HPI Patient is a 71-year-old male with history of nonischemic cardiomyopathy, CHF with an EF of 10-15% with a BiVAICD, atrial fibrillation, hypertension and vertigo. Patient was recently admitted to the hospital for A. fib ablation by Dr. Arana. He did have an IV access to his left AC. Patient reports that he has noticed that for the past few days, he has had increased swelling to his left arm. Patient was told to come to the ER for evaluation of this. Patient is currently taking digoxin as well as Xarelto. Patient denies chest pain/sob. Patient with no fever/chills. Reports that he had an upset stomach prior to coming to the ER but his stomach feels fine now. Patient with no other complaints at this time. PFSH Past Medical History Hx Anticoagulant Therapy: Yes Autoimmune Disease: No Blood Disorders: No Heart Rhythm Problems: Yes (AFIB) Cancer: No Cardiac Catheterization: Yes Cardiovascular Problems: Yes (AICD, CHF, HTN) High Cholesterol: Yes Chemotherapy: No Chest Pain: Yes Congestive Heart Failure: Yes Cerebrovascular Accident: Yes (2007) Coronary Artery Disease: Yes Diabetes: No Endocrine: No Gastrointestinal Disorders: No Genitourinary: No Hepatitis: No Hiatal Hernia: No Hypertension: No (HYPOTENSION) Immune Disorder: No Implanted Vascular Access Dvce: Yes Musculoskeletal: No Neurologic: Yes Psychiatric: No Reproductive: No Respiratory: Yes (COPD) Integumentary: No Myocardial Infarction: Yes (2005 AICD PLACED) Radiation Therapy: No Thyroid Disease: No Tetanus Vaccination: Unknown Influenza Vaccination: Yes Past Surgical History Abdominal Surgery: Yes (APPY) AICD: Yes (2005) Appendectomy: Yes Insulin Pump: No Joint Replacement: No Oral Surgery: Yes (T&A) Pacemaker: Yes Other Surgery: Yes (LEFT CHEST AICD,) Social History Alcohol Use: No Tobacco Use: No Substance Use: No Allergies-Medications (Allergen,Severity, Reaction): Coded Allergies: No Known Allergies (Verified , 01/06/17) Reported Meds & Prescriptions Reported Meds & Active Scripts Active Reported Xarelto (Rivaroxaban) 20 Mg Tab 20 Mg PO DAILY Inspra (Eplerenone) 25 Mg Tab 25 Mg PO DAILY Digoxin 0.125 Mg Tab 0.125 Mg PO DAILY Coreg (Carvedilol) 3.125 Mg Tab 3.125 Mg PO BID Aspirin 81 Mg Chew 81 Mg CHEW DAILY Temazepam 15 Mg Cap 15 Mg PO HS PRN Ramipril 2.5 Mg Cap 2.5 Mg PO DAILY K-Tab (Potassium Chloride) 10 Meq Tab 10 Meq PO DAILY Meclizine (Meclizine HCl) 12.5 Mg Tab 25 Mg PO TID PRN Lasix (Furosemide) 40 Mg Tab 40 Mg PO BID Review of Systems General / Constitutional: No: Fever Eyes: No: Visual changes HENT: No: Headaches Cardiovascular: No: Chest Pain or Discomfort Respiratory: No: Shortness of Breath Gastrointestinal: No: Abdominal Pain Genitourinary: No: Dysuria Musculoskeletal: Positive: Edema (swelling to lue), No: Pain Skin: No Rash Neurologic: No: Weakness Psychiatric: No: Depression Endocrine: No: Polydipsia Hematologic/Lymphatic: No: Easy Bruising Physical Exam Narrative GENERAL: NAD SKIN: Focused skin assessment warm/dry. HEAD: Atraumatic. Normocephalic. EYES: Pupils equal and round. No scleral icterus. No injection or drainage. ENT: No nasal bleeding or discharge. Mucous membranes pink and moist. NECK: Trachea midline. No JVD. CARDIOVASCULAR: Regular rate and rhythm. No murmur appreciated. RESPIRATORY: No accessory muscle use. Clear to auscultation. Breath sounds equal bilaterally. GASTROINTESTINAL: Abdomen soft, non-tender, nondistended. Hepatic and splenic margins not palpable. MUSCULOSKELETAL: No obvious deformities. No clubbing. No cyanosis. Swelling to left upper extremity, pulses intact, neurovascularly intact NEUROLOGICAL: Awake and alert. No obvious cranial nerve deficits. Motor grossly within normal limits. Normal speech. PSYCHIATRIC: Appropriate mood and affect; insight and judgment normal. Data Data Last Documented VS Vital Signs Date Time Temp Pulse Resp B/P (MAP) Pulse Ox O2 Delivery O2 Flow Rate FiO2 01/06/17 23:20 81 20 102/64 (77) 96 Room Air 01/06/17 20:11 98.7 Orders Orders Electrocardiogram (01/06/17 21:56) B-Type Natriuretic Peptide (01/06/17 21:56) Complete Blood Count With Diff (01/06/17 21:56) Comprehensive Metabolic Panel (01/06/17 21:56) Prothrombin Time / Inr (Pt) (01/06/17 21:56) Act Partial Throm Time (Ptt) (01/06/17 21:56) Chest, Single Ap (01/06/17 21:56) Ecg Monitoring (01/06/17 21:56) Iv Access Insert/Monitor (01/06/17 21:56) Oximetry (01/06/17 21:56) Sodium Chloride 0.9% Flush (Ns Flush) (01/06/17 22:00) Us Arm Venous Doppler (01/06/17 ) Digoxin (01/06/17 22:09) Labs Laboratory Tests Test 01/06/17 22:10 01/07/17 00:04 Prothrombin Time 12.0 SEC Prothromb Time International Ratio 1.1 RATIO Activated Partial Thromboplast Time 25.9 SEC Blood Urea Nitrogen 15 MG/DL Creatinine 1.03 MG/DL Random Glucose 89 MG/DL Total Protein 5.3 GM/DL Albumin 2.4 GM/DL Calcium Level 7.9 MG/DL Alkaline Phosphatase 56 U/L Aspartate Amino Transf (AST/SGOT) 21 U/L Alanine Aminotransferase (ALT/SGPT) 19 U/L Total Bilirubin 0.6 MG/DL Sodium Level 139 MEQ/L Potassium Level 3.8 MEQ/L Chloride Level 107 MEQ/L Carbon Dioxide Level 24.7 MEQ/L Anion Gap 7 MEQ/L Estimat Glomerular Filtration Rate 71 ML/MIN B-Type Natriuretic Peptide 624 PG/ML Digoxin Level 0.7 NG/ML White Blood Count 7.2 TH/MM3 Red Blood Count 4.32 MIL/MM3 Hemoglobin 13.9 GM/DL Hematocrit 41.4 % Mean Corpuscular Volume 95.8 FL Mean Corpuscular Hemoglobin 32.2 PG Mean Corpuscular Hemoglobin Concent 33.7 % Red Cell Distribution Width 16.7 % Platelet Count 165 TH/MM3 Mean Platelet Volume 8.5 FL Neutrophils (%) (Auto) 74.1 % Lymphocytes (%) (Auto) 11.6 % Monocytes (%) (Auto) 11.8 % Eosinophils (%) (Auto) 1.8 % Basophils (%) (Auto) 0.7 % Neutrophils # (Auto) 5.3 TH/MM3 Lymphocytes # (Auto) 0.8 TH/MM3 Monocytes # (Auto) 0.8 TH/MM3 Eosinophils # (Auto) 0.1 TH/MM3 Basophils # (Auto) 0.1 TH/MM3 CBC Comment DIFF FINAL Differential Comment MDM Medical Decision Making Medical Screen Exam Complete: Yes Emergency Medical Condition: Yes Medical Record Reviewed: Yes Interpretation(s) EKG at 2303: ventricular paced at 80bpm Vital Signs Date Time Temp Pulse Resp B/P (MAP) Pulse Ox O2 Delivery O2 Flow Rate FiO2 01/06/17 20:11 98.7 78 16 101/74 (83) 98 Room Air Vital Signs Date Time Temp Pulse Resp B/P (MAP) Pulse Ox O2 Delivery O2 Flow Rate FiO2 01/06/17 23:20 81 20 102/64 (77) 96 Room Air 01/06/17 22:09 94 Room Air 01/06/17 20:11 98.7 78 16 101/74 (83) 98 Room Air Differential Diagnosis Differential includes DVT, CHF exacerbation, electrolyte abnormality Narrative Course Patient with complaints of left arm swelling after being hospitalized recently - he did have an afib ablation yesterday by Dr. Arana. He was told to come to the ER for evaluation as he has had left arm swelling for the past few days. Lab work obtained. Doppler ultrasound of arm ordered. CMP and BNP ordered. Patient initially planes of upset stomach, patient with resolution of symptoms at this time. CBC & BMP Diagram 01/06/17 22:10 Total Protein 5.3 L, Albumin 2.4 L, Calcium Level 7.9 L, Alkaline Phosphatase 56 , Aspartate Amino Transf (AST/SGOT) 21, Alanine Aminotransferase (ALT/SGPT) 19, Total Bilirubin 0.6 Last Impressions Chest X-Ray 01/06/172155 Signed Impressions: Service Date/Time: January 21:57 - CONCLUSION: 1. Cardiomegaly. There is a pacing size a.c. device in place. 2. Increased density at the bases likely representing mild consolidation/ atelectasis and or effusion. This process appears worse on the left. Jewel Ferro MD Upper Extremity Ultrasound 01/06/17 0000 Signed Impressions: Service Date/Time: January 21:55 - CONCLUSION: No DVT. Jewel Ferro MD Patient with no obvious DVT, patient did have an IV placed to left AC - patient with most likely IV infiltration cause edema to arm. I reviewed all labs and studies and findings with patient in detail. Plan to have him follow-up with his primary care doctor and senior marketing data analyst and will have him return to emergency room as needed. Diagnosis Primary Impression: Left arm swelling Patient Instructions: General Instructions Additional Instructions: Please provide patient with a copy of his studies at discharge Please follow-up with your primary care doctor as well as your senior marketing data analyst Return to ER as needed Disposition: 01 DISCHARGE HOME Condition: Stable Myrna Ty DO Jan 06, 2017 22:09
--- NOTE | 2017-01-06 22:26 | RADRPT ---
EXAM DATE/TIME: 01/06/2017 21:57 [facility] COMPARISON: CHEST SINGLE AP, December 31, 2016, 8:48. INDICATIONS : Short of breath MEDICAL HISTORY : Congestive heart failure. A-fib, Asthma SURGICAL HISTORY : Pacemaker. Coronary artery stent. ENCOUNTER: Initial ACUITY: 1 day PAIN SCORE: 0/10 LOCATION: chest FINDINGS: There is a multilead pacing/AICD device in place from the left subclavian approach. The heart size is enlarged. There is increased density at the bases bilaterally. Within the upper lungs are clear. CONCLUSION: 1. Cardiomegaly. There is a pacing size a.c. device in place. 2. Increased density at the bases likely representing mild consolidation/ atelectasis and or effusion . This process appears worse on the left. Jewel Ferro MD on January 06, 2017 at 22:23 Board Certified Radiologist. This report was verified electronically.
--- NOTE | 2017-01-06 22:33 | RADRPT ---
EXAM DATE/TIME: 01/06/2017 21:55 [facility] COMPARISON: No previous studies available for comparison. INDICATIONS : Left arm swelling. MEDICAL HISTORY : Cerebrovascular disease. Congestive heart failure. Hypercholesterolemia. Dyspnea. Hypotension. Atria l fibrillation. SURGICAL HISTORY : Pacemaker. Appendectomy. ENCOUNTER: Initial ACUITY: 2 day PAIN SCORE: 0/10 LOCATION: Left arm. FINDINGS: There is spontaneous flow documented in the brachial, basilic, cephalic, axillary, and subclavian vei ns. The vessels are compressible and augmentation response is documented. No filling defects are se en. The flow is phasic with respiration. Direction of flow in the jugular vein is caudal. CONCLUSION: No DVT. Jewel Ferro MD on January 06, 2017 at 22:29 Board Certified Radiologist. This report was verified electronically.
[2017-01-06 22:35] LABS: APTT (PATIENT) 25.9 SEC (24.3-30.1); INTERNATIONAL NORMALIZED RATIO 1.1 RATIO
[2017-01-06 22:44] LABS: ANION GAP 7 MEQ/L (5-15); AST (GOT) 21 U/L (15-37); BICARBONATE 24.7 MEQ/L (21.0-32.0); BLOOD UREA NITROGEN 15 MG/DL (7-18); CHLORIDE 107 MEQ/L (98-107); GLOMERULAR FILTRATION RATE 71 ML/MIN (>89); POTASSIUM 3.8 MEQ/L (3.5-5.1); SODIUM (NA) 139 MEQ/L (136-145)
[2017-01-06 22:45] LABS: ALT (GPT) 19 U/L (12-78)
[2017-01-06 22:47] LABS: ALKALINE PHOSPHATASE 56 U/L (45-117); TOTAL BILIRUBIN ADULT 0.6 MG/DL (0.2-1.0)
[2017-01-06 23:20] VITALS: BP 102/64; PULSE 81; RESP 20; O2SAT 96
[2017-01-07 00:29] LABS: AUTOMATED NEUTROPHIL # 5.3 TH/MM3 (1.8-7.7); BASOPHIL # 0.1 TH/MM3 (0-0.2); BASOPHIL % 0.7 % (0.0-2.0); EOSINOPHIL # 0.1 TH/MM3 (0-0.4); EOSINOPHIL % 1.8 % (0.0-4.0); HEMATOCRIT 41.4 % (39.0-51.0); HEMO FLAGS DIFF FINAL; LYMPH % 11.6 % (9.0-44.0); LYMPHOCYTE # 0.8 TH/MM3 (1.0-4.8); MEAN CELL VOLUME 95.8 FL (80.0-100.0); MEAN CORPUSCULAR HEMOGLOBIN 32.2 PG (27.0-34.0); MEAN CORPUSCULAR HGB CONC 33.7 % (32.0-36.0); MONO % 11.8 % (0.0-8.0); NEUT % 74.1 % (16.0-70.0); PLATELET COUNT 165 TH/MM3 (150-450); RED BLOOD COUNT 4.32 MIL/MM3 (4.50-5.90); RED CELL DISTRIBUTION WIDTH 16.7 % (11.6-17.2); WHITE BLOOD COUNT 7.2 TH/MM3 (4.0-11.0)
[2017-01-07 02:00] VITALS: BP 116/81
--- NOTE | 2017-01-07 13:12 | EKG ---
Date Performed: 01/06/2017 Time Performed: 23:03:28 PTAGE: 71 years EKG: ELECTRONIC VENTRICULAR PACEMAKER ABNORMAL RHYTHM ECG PREVIOUS TRACING : 12/31/2016 05.49 Compared to prior tracing no significant change DOCTOR: Usman Salmon Interpretating Date/Time 01/07/2017 13:10:06
== END 2017-01-07 02:36 | disposition home or self-care (01) ==
LOC: NEPC 20:09
DX: R60.0 Localized edema (principal); R94.31 Abnormal electrocardiogram [ECG] [EKG]; E78.00 Pure hypercholesterolemia, unspecified; I25.2 Old myocardial infarction; Z79.01 Long term (current) use of anticoagulants; Z95.810 Presence of automatic (implantable) cardiac defibrillator; Z86.79 Personal history of other diseases of the circulatory system; Z86.69 Personal history of other diseases of the nervous system and sense organs; Z87.09 Personal history of other diseases of the respiratory system
CPT/HCPCS: 71010; 80053; 80162; 83880; 85025; 85610; 85730; 93005; 93971; 99285